=== PATIENT | male | born 1970 | race Caucasian/White ===

== ENCOUNTER 2021-04-07 12:23 | Inpatient (IN) | payer BC, SELFPAY ==
[2021-04-07] VITALS (16 sets, daily range): BP systolic 113–136; BP diastolic 72–92; PULSE 49–59; RESP 10–20; TEMP 36.9–37.3; O2SAT 95–100; BMI 20.4
[2021-04-07 12:56] LABS: Alanine Aminotransferase 33 IU/L (<50); Albumin 4.8 g/dL (3.5-5.0); Albumin Globulin Ratio 1.5 (1.0-2.8); Alkaline Phosphatase 69 U/L (38-126); Aspartate Aminotransferase 44 IU/L (17-59); Bilirubin Total 0.9 mg/dL (0.2-1.3); Blood Urea Nitrogen 18 mg/dL (9-20); Calcium 9.9 mg/dL (8.4-10.2); Carbon Dioxide 28 mmol/L (22-32); Chloride 101 mmol/L (98-107); Estimated Glomerular Filt Rate > 60.0 mL/min (>60); Globulin 3.3 g/dL (1.7-4.1); Glucose 123 mg/dL (70-100); HEMOLYSIS < 15 (0-50); Lipase 100 U/L (23-300); Potassium 4.1 mmol/L (3.4-5.1); Sodium 138 mmol/L (137-145); Total Protein 8.1 g/dL (6.3-8.2)
[2021-04-07 13:00] LABS: Add Manual Diff / Slide Review NO; Basophils Absolute Auto 0 /uL (0-100); Basophils Percent Auto 0.2 % (0-2); Eosinophils Absolute Auto 0 /uL (0-450); Hematocrit 44.2 % (41-53); Hemoglobin 14.7 g/dL (13.5-17.5); Lymphocytes Absolute Auto 1200 /uL (1100-4500); Lymphocytes Percent Auto 8.9 % (25-40); Mean Corpuscular HGB Conc 33.2 % (30-36); Mean Corpuscular Volume 93.6 fL (80-100); Monocytes Absolute Auto 800 /uL (0-900); Monocytes Percent Auto 5.5 % (3-14); Neutrophils Absolute Auto 11900 /uL (1500-7000); Neutrophils Percent Auto 85.4 % (50-75); Platelet Count 231 X10^3/uL (150-400); Red Blood Cell Count 4.73 X10^6/uL (4.5-5.9); Red Cell Distribution Width 13.1 % (11.6-14.8); White Blood Cell Count 13.9 X10^3/uL (4.5-11.0)
--- NOTE | 2021-04-07 13:02 | ED.ABDPAIN ---
HPI - Abdominal Pain General Chief Complaint: Abdominal Pain Stated Complaint: stomach pain Time Seen by Provider: 04/07/21 12:39 Source: patient Mode of arrival: Ambulatory Limitations: no limitations History of Present Illness HPI narrative: 50-year-old male nonsmoker presents with significant other and a chief complaint of severe lower abdominal pain that started last evening. He states that he has been having some abdominal discomfort off and on for the better part of a week but it became significantly worse last night. It is largely in his lower abdomen, perhaps left more than right. He has had nausea, vomiting. He has a poor appetite has not had anything since last night. He has had a hard time having bowel movements though he has tried. He denies any urinary complaints such as dysuria, frequency or urgency. His only abdominal surgery is of spleen secondary to trauma many years ago. Related Data Allergies Allergy/AdvReac Type Severity Reaction Status Date / Time No Known Drug Allergies Allergy Verified 04/07/21 12:28 Review of Systems Review of Systems Narrative: GENERAL: Denies chills, fatigue, malaise, fever, sweats. HEENT: Denies sinus pain, ear pain, sore throat, difficulty swallowing, dizziness. RESPIRATORY: Denies dyspnea, cough, wheezing, hemoptysis, sputum. CARDIOVASCULAR: Denies chest pain, palpitations, orthopnea, edema, GASTROINTESTINAL: see HPI : Denies dysuria, frequency, incontinence, hematuria, urinary retention. MUSCULOSKELETAL: denies weakness, joint pain, or bony pain SKIN: Denies rash, skin lesions, or other NEUROLOGIC: Denies weakness, headache, numbness, change in speech, confusion, seizures, incoordination. PSYCHIATRIC: No concerning psychosocial issues. 12 point review of systems is negative except for those stated above Patient History Surgical History (Updated 04/07/21 @ 18:37 by Zach Mitchell MD) Status post splenectomy Social History Smoking Status: Former smoker Smoking Status: Former smoker alcohol intake frequency: 0-2 drinks per day Substance Use Type: does not use Exam Narrative Exam Narrative: GENERAL: [50] year old patient appears stated age. Well-developed patient, in mild distress. HEAD: Atraumatic. Normocephalic. EYES: Pupils equal round and reactive. Extraocular motions intact. No scleral icterus. No injection or drainage. ENT: Nose without bleeding, purulent drainage. Throat without erythema, tonsillar hypertrophy or exudate. Airway patent. NECK: Trachea midline. Non tender CARDIOVASCULAR: Regular rate and rhythm without murmurs, gallops, or rubs. RESPIRATORY: Clear to auscultation. Breath sounds equal bilaterally. No wheezes, rales, or rhonchi. GASTROINTESTINAL: Abdomen soft, tender in the lower abdomen with decreased bowel sounds, no peritonitis or guarding EXTREMITIES: No edema or joint tenderness. BACK: Nontender without deformity or crepitance. No flank tenderness. NEURO: AOx3. SKIN: No rash or erythema of visible areas Initial Vital Signs Initial Vital Signs: Vital Signs Temperature 98.5 F 04/07/21 12:28 Pulse Rate 51 L 04/07/21 12:28 Respiratory Rate 14 04/07/21 12:28 Blood Pressure 123/82 04/07/21 12:28 Pulse Oximetry 100 04/07/21 12:28 Course Orders Ordered: ED Orders 04/07/21 12:33 EKG-12 Lead Stat 04/07/21 12:40 Complete Blood Count AUTO DIFF Stat Comprehensive Metabolic Panel Stat Lipase Stat 04/07/21 13:11 CT abdomen pelvis w con Stat Enoxaparin Sodium (Enoxaparin 40 Mg/0.4 Ml Syringe) 40 mg SUBCUT DAILY KADIE Lactated Ringer's (Lactated Ringers) 1,000 mls @ 1,000 mls/hr IV BOLUS ONE Stop: 04/07/21 19:12 Last Infusion: 04/07/21 18:32 Dose: 0 mls/hr Documented by: Admin: 04/07/21 18:31 Dose: 1,000 mls/hr Documented by: JIMI Lactated Ringer's (Lactated Ringers) 1,000 mls @ 150 mls/hr IV CONT KADIE Ketorolac Tromethamine (Ketorolac 30 Mg/Ml Vial) 30 mg IV Q6HR PRN PRN Reason: Pain, Moderate (4-6) Stop: 04/12/21 18:20 Naloxone HCl (Naloxone 0.4 Mg/Ml Vial) 0.2 mg IV Q2MIN PRN PRN Reason: Opiate Reversal Discontinued Medications Hydromorphone HCl (Hydromorphone 0.5 Mg Inj) 0.5 mg IV NOW ONE Stop: 04/07/21 13:28 Last Admin: 04/07/21 13:38 Dose: 0.5 mg Documented by: BTONER Hydromorphone HCl (Hydromorphone 0.5 Mg Inj) 0.5 mg IV NOW ONE Stop: 04/07/21 16:38 Last Admin: 04/07/21 16:47 Dose: 0.5 mg Documented by: BTONER Sodium Chloride (Normal Saline 0.9%) 1,000 mls @ 1,000 mls/hr IV BOLUS ONE Stop: 04/07/21 14:10 Last Infusion: 04/07/21 15:44 Dose: 0 mls/hr Documented by: Admin: 04/07/21 13:17 Dose: 1,000 mls/hr Documented by: BTONER Cefotetan Disodium 2 gm/ (Sodium Chloride) 100 mls @ 200 mls/hr IV NOW ONE Stop: 04/07/21 18:58 Lidocaine HCl (Lidocaine 2% (Glydo) 6 Ml Gel) 6 ml TOP NOW ONE Stop: 04/07/21 17:15 Last Admin: 04/07/21 17:18 Dose: 6 ml Documented by: CHARISMA Consultations Consultation #1: Discussion with on-call surgery, Dr. Mitchell, he will see the patient at the bedside and admit to his service Vital Signs Vital signs: Vital Signs - 8 hr 04/07/21 12:28 04/07/21 12:54 04/07/21 13:00 Temperature 98.5 F Pulse Rate 51 L 52 L 51 L Respiratory Rate 14 10 L Blood Pressure 123/82 113/72 116/74 Pulse Oximetry 100 99 98 04/07/21 13:30 04/07/21 14:30 04/07/21 15:00 Temperature Pulse Rate 51 L 56 L 50 L Respiratory Rate 12 13 16 Blood Pressure 119/75 Pulse Oximetry 99 95 95 04/07/21 15:30 04/07/21 15:50 04/07/21 16:00 Temperature Pulse Rate 52 L 50 L 53 L Respiratory Rate 16 13 14 Blood Pressure 129/84 123/84 Pulse Oximetry 95 98 96 04/07/21 16:30 04/07/21 17:00 04/07/21 17:05 Temperature 99.2 F Pulse Rate 49 L 50 L Respiratory Rate 20 Blood Pressure 117/79 122/76 Pulse Oximetry 96 98 MDM - Abdominal Pain Lab Data Result diagrams: 04/07/21 12:40 04/07/21 12:40 Labs: Lab Results 04/07/21 04/07/21 Range/Units 12:40 12:40 WBC 13.9 H (4.5-11.0) X10^3/uL RBC 4.73 (4.5-5.9) X10^6/uL Hgb 14.7 (13.5-17.5) g/dL Hct 44.2 (41-53) % MCV 93.6 (80-100) fL MCH 31.0 (26-34) PG MCHC 33.2 (30-36) % RDW 13.1 (11.6-14.8) % Plt Count 231 (150-400) X10^3/uL Neut % (Auto) 85.4 H (50-75) % Lymph % (Auto) 8.9 L (25-40) % [place] % (Auto) 5.5 (3-14) % Eos % (Auto) 0.0 L (2-4) % Baso % (Auto) 0.2 (0-2) % Neut # (Auto) 18832 H (6669-9735) /uL Lymph # (Auto) 1200 (2703-5818) /uL [place] # (Auto) 800 (0-900) /uL Eos # (Auto) 0 (0-450) /uL Baso # (Auto) 0 (0-100) /uL Sodium 138 (137-145) mmol/L Potassium 4.1 (3.4-5.1) mmol/L Chloride 101 (98-107) mmol/L Carbon Dioxide 28 (22-32) mmol/L BUN 18 (9-20) mg/dL Creatinine 0.75 (0.66-1.25) mg/dL Estimated GFR > 60.0 (>60) mL/min BUN/Creatinine Ratio 24.0 H (6-22) Glucose 123 H (70-100) mg/dL Calcium 9.9 (8.4-10.2) mg/dL Total Bilirubin 0.9 (0.2-1.3) mg/dL AST 44 (17-59) IU/L ALT 33 (<50) IU/L Alkaline Phosphatase 69 (38-126) U/L Total Protein 8.1 (6.3-8.2) g/dL Albumin 4.8 (3.5-5.0) g/dL Globulin 3.3 (1.7-4.1) g/dL Albumin/Globulin Ratio 1.5 (1.0-2.8) Lipase 100 (23-300) U/L Imaging Data CT scan - abdomen/pelvis: Radiologist's Impression: [address] [id number] Scan ReportSigned Patient: Brian DuarteMR#: [id number]: 1970Acct:[id number]/Sex: 50 / MDate of Service: 04/07/21Loc: EDAccession Number: [id number] Procedure: CT abdomen pelvis w con Ordering Provider: Chan Eagle D.O. PROCEDURE: CT ABDOMEN PELVIS W CON INDICATIONS: severe lower abdominal pain, N/V, fever, leukocytosis TECHNIQUE: After the administration of intravenous contrast, axial sections acquired from the lung bases to the pubic symphysis. Coronal and sagittal reformats were performed. For radiation dose reduction, the following was used: automated exposure control, adjustment of mA and/or kV according to patient size. COMPARISON: None. FINDINGS: Image quality: Excellent. Lung bases: Unremarkable. Heart: No significant findings. ABDOMEN: Liver: Liver demonstrates subtle nodular contour. Gallbladder: Unremarkable. Biliary ducts: Unremarkable. Pancreas: Unremarkable. Spleen: Spleen is small. The patient had history of partial splenectomy. There is a 1.5 cm splenule anterior to spleen. Adrenal Glands: Unremarkable. Kidneys and Ureters: Unremarkable. Stomach and Bowel: The proximal small bowel loops are dilated and filled with fluid measuring up to 3.5 cm in diameter. There is increased small bowel mucosal enhancement. Distal small bowel loops are decompressed with the transitional point in the right lower quadrant, likely in the distal ileum. The CT findings are consistent with small bowel obstruction. There is moderate amount of stool in colon. There is paucity of distal colonic gas. Appendix is retrocecal and demonstrates normal caliber and filled with air (series 2, image [id number]. Peritoneum: There is a small amount of free fluid around liver and in the deep peritoneal cavity. No free air. Ventral Wall: No hernias. Abdominal Nodes: No retroperitoneal or mesenteric adenopathy by size criteria. Vessels: Aorta and inferior vena cava are normal in size. PELVIS: Pelvic Organs: Unremarkable. Bladder: Unremarkable. Pelvic Nodes: No enlarged lymph nodes. Miscellaneous: No hernias are seen. Bones: Unremarkable. IMPRESSION: 1. Small bowel obstruction. 2. A small amount of free fluid is present. No free air. 3. Liver demonstrates subtle nodular contour. Please correlate with liver function tests. The result was discussed with Dr. Eagle. Dictated by: Kajal Brooke M.D. on 04/07/2021 at 14:24 Approved by: Kajal Brooke M.D. on 04/07/2021 at 14:37 Discharge Plan Departure Patient Disposition: Admitted As Inpatient Clinical Impression: Small bowel obstruction Admit Date/Time: 04/07/21 17:09 Admit Provider: Zach Mitchell
--- NOTE | 2021-04-07 13:11 | DI.CT.S_ITS ---
PROCEDURE: CT ABDOMEN PELVIS W CON INDICATIONS: severe lower abdominal pain, N/V, fever, leukocytosis TECHNIQUE: After the administration of intravenous contrast, axial sections acquired from the lung bases to the pubic symphysis. Coronal and sagittal reformats were performed. For radiation dose reduction, the following was used: automated exposure control, adjustment of mA and/or kV according to patient size. COMPARISON: None. FINDINGS: Image quality: Excellent. Lung bases: Unremarkable. Heart: No significant findings. ABDOMEN: Liver: Liver demonstrates subtle nodular contour. Gallbladder: Unremarkable. Biliary ducts: Unremarkable. Pancreas: Unremarkable. Spleen: Spleen is small. The patient had history of partial splenectomy. There is a 1.5 cm splenule anterior to spleen. Adrenal Glands: Unremarkable. Kidneys and Ureters: Unremarkable. Stomach and Bowel: The proximal small bowel loops are dilated and filled with fluid measuring up to 3.5 cm in diameter. There is increased small bowel mucosal enhancement. Distal small bowel loops are decompressed with the transitional point in the right lower quadrant, likely in the distal ileum. The CT findings are consistent with small bowel obstruction. There is moderate amount of stool in colon. There is paucity of distal colonic gas. Appendix is retrocecal and demonstrates normal caliber and filled with air (series 2, image [id number]. Peritoneum: There is a small amount of free fluid around liver and in the deep peritoneal cavity. No free air. Ventral Wall: No hernias. Abdominal Nodes: No retroperitoneal or mesenteric adenopathy by size criteria. Vessels: Aorta and inferior vena cava are normal in size. PELVIS: Pelvic Organs: Unremarkable. Bladder: Unremarkable. Pelvic Nodes: No enlarged lymph nodes. Miscellaneous: No hernias are seen. Bones: Unremarkable. IMPRESSION: 1. Small bowel obstruction. 2. A small amount of free fluid is present. No free air. 3. Liver demonstrates subtle nodular contour. Please correlate with liver function tests. The result was discussed with Dr. Eagle. Dictated by: Kajal Brooke M.D. on 04/07/2021 at 14:24 Approved by: Kajal Brooke M.D. on 04/07/2021 at 14:37
[2021-04-07] MEDS: SODIUM CHLORIDE 0.9% 1,000 ML 1000 ML IV (13:17)
[2021-04-07] MEDS: HYDROMORPHONE 0.5 MG INJ IV ×2 (13:38→16:47)
[2021-04-07] MEDS: ONDANSETRON 4 MG/2 ML INJ (13:38)
[2021-04-07] MEDS: LIDOCAINE 2% (GLYDO) 6 ML GEL TOP (17:18)
[2021-04-07] MEDS: LACTATED RINGERS 1,000 ML 1000 ML IV (18:31)
--- NOTE | 2021-04-07 18:34 | PM.HP.1 ---
History of Present Illness History of Present Illness Date Patient Seen: 04/07/21 Time Patient Seen: 17:30 Date of Onset of Symptoms: 04/07/21 Chief complaint: stomach pain Narrative: The patient is a gentleman who developed crampy abdominal pain early today. It progressed. He had diffuse abdominal pain that now mostly is localized in left lower quadrant and in the suprapubic area. He has never had symptoms like this before. It was accompanied by vomiting but no hematemesis. Only prior abdominal operation was a splenectomy for trauma. Last p.o. was sips of carbonated water prior to coming to the emergency room. Patient History Surgical History (Updated 04/07/21 @ 18:37 by Zach Mitchell MD) Status post splenectomy Family & Social History Safety & Behavioral: Feels Safe in Current Yes Environment Been Physically Hurt or No Threatened By a Person Tobacco & Substance use: Smoking Status Former smoker alcohol intake frequency 0-2 drinks per day Substance Use Type does not use Meds Home Medications and Allergies Allergies Allergy/AdvReac Type Severity Reaction Status Date / Time No Known Drug Allergies Allergy Verified 04/07/21 12:28 Review of Systems Review of Systems Narrative: Patient denies any double vision or pain is eyes. He does wear glasses. No earache sore throats or trouble swallowing. No tooth aches. No problems breathing asthma cough cold. Denies any heart problems chest pain or murmurs. No black or bloody bowel movements. He has had 3 colonoscopies due to the fact that he has a family history of uncles with colon cancer and a father who had some large polyps. Patient denies any hematuria or kidney stones. No depression or anxiety. No problems with his pancreas or thyroid he is aware of. No unusual bruising or bleeding. Exam Vital Signs (past 8 hours): - 04/07/21 12:28 04/07/21 12:54 04/07/21 13:00 Temperature 98.5 F Pulse Rate 51 L 52 L 51 L Respiratory Rate 14 10 L Blood Pressure 123/82 113/72 116/74 Pulse Oximetry 100 99 98 04/07/21 13:30 04/07/21 14:30 04/07/21 15:00 Temperature Pulse Rate 51 L 56 L 50 L Respiratory Rate 12 13 16 Blood Pressure 119/75 Pulse Oximetry 99 95 95 04/07/21 15:30 04/07/21 15:50 04/07/21 16:00 Temperature Pulse Rate 52 L 50 L 53 L Respiratory Rate 16 13 14 Blood Pressure 129/84 123/84 Pulse Oximetry 95 98 96 04/07/21 16:30 04/07/21 17:00 04/07/21 17:05 Temperature 99.2 F Pulse Rate 49 L 50 L Respiratory Rate 20 Blood Pressure 117/79 122/76 Pulse Oximetry 96 98 04/07/21 17:30 Temperature Pulse Rate 59 L Respiratory Rate Blood Pressure 114/79 Pulse Oximetry 95 Oxygen Delivery Method Room Air Narrative Exam Narrative: Cooperative thin gentleman in no apparent distress. Eyes are nonicteric. Pupils are equal round reactive to light. Conjunctiva are pink. Nasal septum is midline. Oral mucosa is pink moist no open lesions. Teeth are intact. There are no nodes in the neck or supraclavicular areas. No bruit in the neck. Lungs are clear to auscultation equal to percussion. Good respiratory effort. Heart regular rate and rhythm without murmur gallop. No heave lift or thrill. Abdomen is normoactive bowel sounds. They reduced however number. No ventral hernias or inguinal hernias appreciated. Abdomen is distended but soft. No guarding. Not tender at this time. He has been given pain medication however. Objective Imaging CT scan - abdomen: My impression: Patient has a bowel obstruction with distal collapse of his small bowel. Stomach is distended with fluid. Patient appears to have a fairly large accessory spleen that has developed. ( He is certain he was told he had a complete splenectomy at the time of his spleen injury.) Labs Result Diagrams: 04/07/21 12:40 04/07/21 12:40 Labs: Laboratory Results - last 24 hr 04/07/21 04/07/21 12:40 12:40 WBC 13.9 H RBC 4.73 Hgb 14.7 Hct 44.2 MCV 93.6 MCH 31.0 MCHC 33.2 RDW 13.1 Plt Count 231 Neut % (Auto) 85.4 H Lymph % (Auto) 8.9 L [place] % (Auto) 5.5 Eos % (Auto) 0.0 L Baso % (Auto) 0.2 Neut # (Auto) 17754 H Lymph # (Auto) 1200 [place] # (Auto) 800 Eos # (Auto) 0 Baso # (Auto) 0 Sodium 138 Potassium 4.1 Chloride 101 Carbon Dioxide 28 BUN 18 Creatinine 0.75 Estimated GFR > 60.0 BUN/Creatinine Ratio 24.0 H Glucose 123 H Calcium 9.9 Total Bilirubin 0.9 AST 44 ALT 33 Alkaline Phosphatase 69 Total Protein 8.1 Albumin 4.8 Globulin 3.3 Albumin/Globulin Ratio 1.5 Lipase 100 Assessment & Plan Assessment and plan (1) Small bowel obstruction: Status: Acute Assessment & Plan narrative: Most likely cause of his obstruction is adhesions pharmacies prior splenectomy. I placed an NG tube and will place dissection. Will begin a small-bowel follow-through with water-soluble contrast. DVT prophylaxis ordered. Nonnarcotic pain medication ordered. Discussed the plan with the patient. If the small-bowel follow-through does not successfully resolve his problem will require operative intervention.
--- NOTE | 2021-04-07 18:37 | PC.NURSE ---
Dr. Mitchell provided lido jet and inserted 18fr NGT at bedside suction immediately with 150 light green clear liquid. pt then placed on low intermittent suction.
--- NOTE | 2021-04-07 18:57 | DI.RAD.S_ITS ---
PROCEDURE: [place] SMALL BOWEL FOLLOW THROUGH INDICATIONS: ilus vs obstruction COMPARISON: [facility], CT, CT ABDOMEN PELVIS W CON, 04/07/2021, 14:03. FINDINGS: . Small bowel: There is delayed transit of barium contrast through small bowel.. Small bowel loops dilated up to 3.6 centimeters.. Mucosal folds are smooth and of normal thickness. No strictures, intraluminal masses, or extrinsic mass effects are identified in the opacified loops of bowel. The terminal ileum is not opacified. IMPRESSION: Delayed transit of barium contrast through mildly dilated loops of small bowel concerning for small bowel obstruction. Dictated by: Helen Peterson MD, PhD on 04/08/2021 at 10:25 Approved by: Helen Peterson MD, PhD on 04/08/2021 at 10:28
[2021-04-07 19:42] LABS: COVID19 - ADMIT (NP swab/PCR) Negative (Negative)
[2021-04-07] MEDS: CEFOTETAN 2 GM in SODIUM CHLORIDE 0.9% 100 ML 200 ML IV (19:48)
[2021-04-07] MEDS: LACTATED RINGERS 1,000 ML 150 ML IV ×2 (19:49→21:35)
[2021-04-07] MEDS: KETOROLAC 30 MG/ML VIAL IV (21:13)
--- NOTE | 2021-04-07 21:19 | PC.NURSE ---
Small bowel follow through initiated. Suction turned off on NG tube and gastrografin given. X-ray called and they will be coming up in 2 hours.
[2021-04-08] VITALS (21 sets, daily range): BP systolic 106–120; BP diastolic 60–77; PULSE 49–73; RESP 14–18; TEMP 36.7–37.7; O2SAT 88–100; BMI 20.4
[2021-04-08] MEDS: ONDANSETRON 4 MG/2 ML INJ IV (02:07)
[2021-04-08] MEDS: KETOROLAC 30 MG/ML VIAL IV ×2 (03:41→21:59)
[2021-04-08] MEDS: BENZOCAINE/MENTHOL 1 LOZ PKT 1 EACH PO (03:41)
[2021-04-08] MEDS: LACTATED RINGERS 1,000 ML 150 ML IV ×4 (04:41→23:39)
[2021-04-08 05:00] LABS: Add Manual Diff / Slide Review NO; Basophils Absolute Auto 0 /uL (0-100); Basophils Percent Auto 0.2 % (0-2); Eosinophils Absolute Auto 0 /uL (0-450); Eosinophils Percent Auto 0.1 % (2-4); Hematocrit 44.6 % (41-53); Lymphocytes Absolute Auto 700 /uL (1100-4500); Lymphocytes Percent Auto 6.1 % (25-40); Mean Corpuscular HGB Conc 33.6 % (30-36); Mean Corpuscular Hemoglobin 31.3 PG (26-34); Mean Corpuscular Volume 93.1 fL (80-100); Monocytes Absolute Auto 1200 /uL (0-900); Monocytes Percent Auto 9.9 % (3-14); Neutrophils Absolute Auto 9800 /uL (1500-7000); Neutrophils Percent Auto 83.7 % (50-75); Platelet Count 220 X10^3/uL (150-400); Red Blood Cell Count 4.79 X10^6/uL (4.5-5.9); Red Cell Distribution Width 13.2 % (11.6-14.8); White Blood Cell Count 11.7 X10^3/uL (4.5-11.0)
[2021-04-08 05:04] LABS: Alanine Aminotransferase 26 IU/L (<50); Albumin 4.3 g/dL (3.5-5.0); Albumin Globulin Ratio 1.4 (1.0-2.8); Alkaline Phosphatase 55 U/L (38-126); Aspartate Aminotransferase 36 IU/L (17-59); BUN Creatinine Ratio 24.4 (6-22); Bilirubin Total 0.9 mg/dL (0.2-1.3); Blood Urea Nitrogen 21 mg/dL (9-20); Calcium 9.9 mg/dL (8.4-10.2); Carbon Dioxide 29 mmol/L (22-32); Chloride 103 mmol/L (98-107); Estimated Glomerular Filt Rate > 60.0 mL/min (>60); Glucose 122 mg/dL (70-100); HEMOLYSIS < 15 (0-50); Magnesium 2.2 mg/dL (1.6-2.3); Sodium 138 mmol/L (137-145); Total Protein 7.3 g/dL (6.3-8.2)
--- NOTE | 2021-04-08 07:45 | PC.NURSE ---
Addendum entered by Cyndie Yates R.N. 04/08/21 16:57: Patient desats on RA while asleep, placed on 2L sats 95%, patient reports IVP dialudid effective for abdominal pain. Addendum entered by Cyndie Yates R.N. 04/08/21 16:04: Patient back from the OR, alert, oriented rates abd pain 6/10 given 1mg IVP dilaudid. NG hooked back to JULIEN mcgill, zahra patent. Addendum entered by Cyndie Yates R.N. 04/08/21 11:49: Patient off to the OR. Original Note: Dr Mitchell informed of patients uop of 100cc for NOC shift, order for 1L LR bolus taken. hooked patient back up to wall suction.
[2021-04-08] MEDS: LACTATED RINGERS 1,000 ML 1000 ML IV (08:03)
--- NOTE | 2021-04-08 11:26 | PM.PREOP ---
Pre-operative Note COVID-19 COVID-19 status: Negative Result date/Date tested (Pos, Neg/Pending): 04/07/21 Interval Note History & Physical reviewed/Exam performed by Physician: Yes Changes to H&P: Yes H&P completed within 30 days and has changed as indicated here:: I.e. have completed his small-bowel follow-through overnight. After Casas hours there is no contrast in the colon. This is consistent with complete bowel obstruction. He has been placed back on suction. Lungs are clear. Abdomen is distended but soft. No tenderness. White blood cell count remains slightly elevated with a preponderance segs. I have discussed the operation and rationale with him. I really do not intend to do any laparoscopic portion of this due to the amount of distension and the fact of his prior operation. I discussed the possibility of needing to resect a portion of intestine. Risks of bleeding, infection, future bowel obstruction, hernia and anastomotic leak if I need to resect bowel were all discussed with him. I also talked to him about limiting poorly digestible vegetables in the future from his diet. Explained that he will need about 6 weeks of limited activity postop to recover. All questions were answered.
[2021-04-08] MEDS: LACTATED RINGERS 1,000 ML 42 ML IV (12:02)
[2021-04-08] MEDS: FAMOTIDINE 20 MG/2 ML VIAL 40 MG IV (12:22)
[2021-04-08] MEDS: CEFOTETAN 2 GM in SODIUM CHLORIDE 0.9% 100 ML 200 ML IV (12:43)
--- NOTE | 2021-04-08 12:58 | SUR.OPER ---
Supine on padded OR bed, head on pillow, arms secured on padded arm boards at <90 degrees abduction, legs uncrossed, safety belt at thigh, tape over blanket over lower legs.
[2021-04-08] MEDS: BUPIVACAINE 0.25% W/ EPI 30 ML VIAL INJ (13:57)
--- NOTE | 2021-04-08 14:01 | CM.DANOTE ---
Patient is 50 year old male who was admitted on 04/07/21 for stomach pain. Pt has [employer] OUT [place] [employer] for insurance and his PCP [place] out of state. EMR was reviewed. Per Surgeon, pt has NG tube and SBFT. Per contrast, SBO and will need surgical intervention and scheduled for this afternoon. SW met bedside with pt and Sig Other Hortensia and explained role and pt confirms that he lives at home with spouse in [place] and is just in [place] visiting on vacation. Pt is active and independent at baseline and works and does not use DME and drives himself. Pt had plans for spouse to fly home and he would drive back to the [facility] and transport his Dtr but now realizing that he may not be feeling well enough after surgery to drive that distance. D/C needs unclear at this time, awaiting surgical intervention to determine needs. Plan: SW to follow closely after surgery later today towards determining if pt progresses enough for safe d/c home with Sig Other back to [place] and any further identified needs. JOSE Peres Discharge Planning/Care Management CM Discharge Assessment Start: 04/08/21 13:44 Freq: Status: Active Protocol: Document 04/08/21 13:46 BF (Rec: 04/08/21 14:01 BF [id number]) Discharge Planning Assessment Assigned Rivet Heater JOSE Garcia DPOA/Assigned Designee Name sig other Contact Information [phone] Advance Directives? No Advance Directives on File No History Provided By Patient,Significant Other, Medical Record Has Patient been admitted in last 30 No days? Prior Living Arrangements House Household Members spouse,children Type of transporation used prior to Drives own vehicle admit Is patient alert and oriented? Yes Caregiver for Another No Barriers to Discharge No Comment Although pt resides in [place] and was planning to drive back home to [facility] but has family present. Discharge Plan Home Transportation Arrangement Sig Other bedside Additional Comment Pending surgery and needs Whiteboard Updated in Patient Room with Yes name and ext. # of Rivet Heater Review Status In Process Please Provide Date Initial DC 04/08/21 Assessment Was Performed Next Review Type Continued Stay Review
--- NOTE | 2021-04-08 14:48 | PM.OP.1 ---
Operative Date/Time/Diagnoses Date of procedure: 04/08/21 Time of procedure: 14:48 Pre-op diagnosis: Small bowel obstruction Post-op diagnosis: same ( adhesive small bowel obstruction) Procedure & Clinicians Procedure: exploration it he has a lysis and resection of a portion of small bowel Same procedure as scheduled: Yes Indications: patient with signs and symptoms and x-rays consistent with a small-bowel obstruction. Gastrografin failed to progress through his intestine and he was taken to the operating room with a diagnosis of complete obstruction. Surgeon: Zach Mitchell Click Yes if Unassisted: Yes Anesthesia Type: General Operative Notes Findings: single loop adherent to the anterior abdominal wall which had twisted resulting in obstruction. The adhesion to the anterior abdominal wall was very dense an in resecting portion of the abdominal wall off to free the intestine it appeared that there was some stricturing in the area and therefore I decided to remove this segment which was probably an inch and half in length. Closure Type: primary Specimen(s): other ( Small piece of bowel) Prosthetic devices, grafts, tissues, transplants, or devices: known Estimated Blood Loss (mL): 20 Blood products transfused: none Procedure in detail: patient was placed supine on the operating room table and underwent general endotracheal anesthesia. A Sullivan was placed and he was prepped and draped in the usual fashion. An incision was made from just above his umbilicus to the lower abdomen and carried directly under vision into the peritoneal cavity. I opened the fascia superiorly and inferiorly and quickly identified dilated small bowel. Just to the right of my incision was a loop of small bowel that appeared to be twisted and densely adherent to the anterior abdominal wall. I very tedious the took this off having to leave a portion of the wall on the intestine to prevent injury. This was clearly the source of obstruction as proximal to this the bowel was dilated and distal was collapsed. In examining the bowel appeared to be a stricture at this area. I resected the anti mesenteric portion of bowel which had the adhesion. I closed it in a [id number] fashion In 2 layers. The inner layer was a running 3-0 Vicryl and the outer layer with interrupted seromuscular 3-0silks. the intestine appeared to be widely patent. I could feel a ring consistent with a patent opening. I tested for leakage and there was none. Fluid and air passed across the area. Since I did not go all the way through the back wall of the small bowel there was no mesenteric defect created. I ran the small bowel from the ileocecal valve proximally to the ligament Treitz. I carefully milk some of the contents of the small bowel back into the stomach where was suctioned out. This allowed me to have a little bit of freedom to close the abdominal wall. Intestine was returned very carefully to the abdomen and the pelvis irrigated and suctioned free of fluid. The fascia was closed with a running 1. PDS an occasional [id number] 0 Vicryl sutures. The subQ was reapproximated with interrupted 3-0 Vicryl after irrigating the subcu. Local anesthetic was infiltrated and the skin was closed a running 4-0 Vicryl subcuticular stitch and Steri-Strips. Dressing was applied and the patient was awakened extubated and taken the recovery room good condition. There were no apparent complications. NG and Sullivan were left in place. Complications: none Post-operative Condition: stable Disposition: PACU
[2021-04-08] MEDS: HYDROMORPHONE 1 MG INJ IV ×2 (15:57→18:46)
[2021-04-09] VITALS (9 sets, daily range): BP systolic 99–112; BP diastolic 59–63; PULSE 52–68; RESP 16–20; TEMP 36.5–37.7; O2SAT 93–97
[2021-04-09] MEDS: BENZOCAINE/MENTHOL 1 LOZ PKT 1 EACH PO ×2 (01:20→08:39)
[2021-04-09] MEDS: HYDROMORPHONE 1 MG INJ IV ×5 (01:20→20:13)
[2021-04-09 05:30] LABS: Add Manual Diff / Slide Review NO; Basophils Absolute Auto 0 /uL (0-100); Basophils Percent Auto 0.4 % (0-2); Eosinophils Absolute Auto 0 /uL (0-450); Eosinophils Percent Auto 0.3 % (2-4); Hematocrit 40.2 % (41-53); Hemoglobin 13.3 g/dL (13.5-17.5); Lymphocytes Absolute Auto 1800 /uL (1100-4500); Mean Corpuscular HGB Conc 33.2 % (30-36); Mean Corpuscular Hemoglobin 31.3 PG (26-34); Mean Corpuscular Volume 94.2 fL (80-100); Monocytes Absolute Auto 1200 /uL (0-900); Monocytes Percent Auto 14.9 % (3-14); Neutrophils Absolute Auto 5200 /uL (1500-7000); Neutrophils Percent Auto 62.4 % (50-75); Platelet Count 181 X10^3/uL (150-400); Red Blood Cell Count 4.26 X10^6/uL (4.5-5.9); White Blood Cell Count 8.3 X10^3/uL (4.5-11.0)
[2021-04-09 05:38] LABS: BUN Creatinine Ratio 25.2 (6-22); Blood Urea Nitrogen 27 mg/dL (9-20); Calcium 8.6 mg/dL (8.4-10.2); Carbon Dioxide 30 mmol/L (22-32); Chloride 101 mmol/L (98-107); Estimated Glomerular Filt Rate > 60.0 mL/min (>60); Glucose 113 mg/dL (70-100); HEMOLYSIS < 15 (0-50); Potassium 4.4 mmol/L (3.4-5.1); Sodium 137 mmol/L (137-145)
[2021-04-09] MEDS: LACTATED RINGERS 1,000 ML 150 ML IV ×3 (06:05→19:48)
[2021-04-09] MEDS: KETOROLAC 30 MG/ML VIAL IV ×3 (06:05→18:30)
--- NOTE | 2021-04-09 08:14 | PC.NURSE ---
Day shift: Pt encouraged to use I.S. and to perform foot waves. Reports pain of 3/10. NG tube patent and to suction per MD w/ green bile output. Pt NPO. Sullivan patent with jacob urine output. WIll continue w/ plan of care.
[2021-04-09] MEDS: FAMOTIDINE 20 MG/2 ML VIAL IV ×2 (08:41→20:13)
[2021-04-09] MEDS: ENOXAPARIN 40 MG/0.4 ML SYRINGE SUBCUT (08:41)
--- NOTE | 2021-04-09 12:22 | PM.PNPO.1 ---
Subjective Subjective Interval history: Patient feeling okay. Just had pain medication. Having pain as 1 might expect. Exam Vital Signs (past 8 hours): - 04/09/21 06:30 04/09/21 08:10 Temperature 99.1 F Pulse Rate 64 Respiratory Rate 16 Blood Pressure 102/61 Pulse Oximetry 93 97 Oxygen Delivery Method Room Air Oxygen Flow Rate 0 Narrative Exam Narrative: Cooperative gentleman. No distress. His lungs are clear. Excellent effort. Heart regular rate and rhythm without murmur gallop. Abdomen is flat and soft. He has hyperactive bowel sounds that are normal pitched. Objective Labs Result Diagrams: 04/09/21 05:13 04/09/21 05:13 Labs: Laboratory Results - last 24 hr 04/09/21 04/09/21 05:13 05:13 WBC 8.3 RBC 4.26 L Hgb 13.3 L Hct 40.2 L MCV 94.2 MCH 31.3 MCHC 33.2 RDW 13.0 Plt Count 181 Neut % (Auto) 62.4 D Lymph % (Auto) 22.0 L [place] % (Auto) 14.9 H Eos % (Auto) 0.3 L Baso % (Auto) 0.4 Neut # (Auto) 5200 Lymph # (Auto) 1800 [place] # (Auto) 1200 H Eos # (Auto) 0 Baso # (Auto) 0 Sodium 137 Potassium 4.4 Chloride 101 Carbon Dioxide 30 BUN 27 H Creatinine 1.07 Estimated GFR > 60.0 BUN/Creatinine Ratio 25.2 H Glucose 113 H Calcium 8.6 PFSH Surgical History (Updated 04/07/21 @ 18:37 by Zach Mitchell MD) Status post splenectomy Social History household members: spouse and children Smoking Status: Former smoker alcohol intake: current Assessment & Plan Post-op Assessment and plan (1) Small bowel obstruction: Postoperative Procedures: Procedures Operation Date: 04/08/21 14:15 Actual Procedure Side Surgeon p exploratory laparotomy, small bowel resection, lysis of adhesions Not Applicable Zach Mitchell MD Postoperative plan narrative: Continue NPO with NG tube. Control pain. Ambulate. Continue to work on incentive spirometer though frankly he is doing have excellent job. Await return of bowel function. Increased fluid volume yesterday. Quality VTE Deep Vein Thrombosis/Pulmonary Embolism Present on Admission: No
--- NOTE | 2021-04-09 14:46 | CM.DPNOTE ---
DCP: continued: case received and discussed in Team Rounds. EMR reviewed. Pt is today post op day one from [facility] and small bowel resection on 04/08. NGT is in place and pt currently NPO. Awaiting bowel function. DCP team will be following to assist prn with any d/c needs that may be needed.
--- NOTE | 2021-04-09 22:40 | PC.NURSE ---
A&Ox4. VSS. Pain in abdomen 4-5/10 throughout shift and increased to 6/10 with ambulation in the hallway. PRN IV dilaudid and toradol given which both provide relief. NPO, given mouth swabs and lip moisture. NG tube to suction, 900mL emptied at 1999. Incision dressing cdi. Bowel tones active in the RUQ and LUQ, hypoactive LLQ, RLQ. LR @ 150 into R AC PIV. SCDs on, removed for activity. Call light within reach, bed low.
[2021-04-10] VITALS (20 sets, daily range): BP systolic 99–117; BP diastolic 58–76; PULSE 60–80; RESP 16–20; TEMP 36.9–39.3; O2SAT 94–97
[2021-04-10] MEDS: HYDROMORPHONE 1 MG INJ IV ×5 (00:27→17:51)
[2021-04-10] MEDS: KETOROLAC 30 MG/ML VIAL IV ×3 (00:31→21:36)
[2021-04-10] MEDS: BENZOCAINE/MENTHOL 1 LOZ PKT 1 EACH PO ×5 (00:40→20:29)
[2021-04-10] MEDS: LACTATED RINGERS 1,000 ML 150 ML IV ×2 (02:47→09:27)
[2021-04-10] MEDS: FAMOTIDINE 20 MG/2 ML VIAL IV ×2 (07:52→20:29)
--- NOTE | 2021-04-10 12:01 | DI.RAD.S_ITS ---
PROCEDURE: XR ACUTE ABDOMEN SERIES INDICATIONS: post op fever after sbo TECHNIQUE: One view chest and two views of the abdomen were acquired. COMPARISON: [facility], CT, CT ABDOMEN PELVIS W CON, 04/07/2021, 14:03. FINDINGS: Surgical changes and devices: Esophagogastric tube extends into and coils within the gastric cardia. No subdiaphragmatic free air. Chest: Lungs are clear. Heart size is normal. No pleural effusions. No pneumoperitoneum. Abdomen: Colonic bowel gas pattern is normal. Small bowel gas prominence persists along the left upper quadrant and left lateral abdomen. The CT scanning performed 04/07/21 had shown small bowel gas and fluid dilatation and the colon has appeared relatively collapsed. This pattern persists. No suspicious calcifications. Visualized solid organ contours appear normal. Bones: No suspicious bony lesions. IMPRESSION: Persistent small bowel gas prominence on the left, extending from the left upper quadrant into the pelvis, and the colon appears decompressed. Esophagogastric tube tip is present within the gastric cardia. Please note that plain film imaging can underestimate the degree of dilatation of the small bowel if it is predominantly fluid-filled. This was the case on prior CT scanning. Dictated by: Omid So M.D. on 04/10/2021 at 13:38 Approved by: Omid So M.D. on 04/10/2021 at 13:44
[2021-04-10] MEDS: cefTRIAXone 1,000 MG in SODIUM CHLORIDE 0.9% 100 ML 200 ML IV (14:20)
[2021-04-10] MEDS: BISACODYL 10 MG SUPP PR (14:20)
[2021-04-10] MEDS: metroNIDAZOLE 500 MG/100 ML PIGGYBACK 100 MG IV ×2 (15:38→22:53)
[2021-04-10 15:39] LABS: Procalcitonin 1.64 ng/mL (<0.5)
[2021-04-10 16:40] LABS: Add Manual Diff / Slide Review NO; Basophils Absolute Auto 100 /uL (0-100); Basophils Percent Auto 1.5 % (0-2); Eosinophils Absolute Auto 0 /uL (0-450); Eosinophils Percent Auto 0.2 % (2-4); Hematocrit 38.1 % (41-53); Hemoglobin 12.9 g/dL (13.5-17.5); Lymphocytes Absolute Auto 600 /uL (1100-4500); Lymphocytes Percent Auto 13.6 % (25-40); Mean Corpuscular HGB Conc 33.8 % (30-36); Mean Corpuscular Hemoglobin 31.5 PG (26-34); Mean Corpuscular Volume 93.3 fL (80-100); Monocytes Absolute Auto 800 /uL (0-900); Monocytes Percent Auto 16.8 % (3-14); Neutrophils Absolute Auto 3100 /uL (1500-7000); Neutrophils Percent Auto 67.9 % (50-75); Platelet Count 176 X10^3/uL (150-400); Red Blood Cell Count 4.08 X10^6/uL (4.5-5.9); Red Cell Distribution Width 12.8 % (11.6-14.8); White Blood Cell Count 4.6 X10^3/uL (4.5-11.0)
[2021-04-10] MEDS: DEXTROSE 5%-LACTATED RINGERS 1,000 ML 125 ML IV (17:32)
[2021-04-10] MEDS: ACETAMINOPHEN 650 MG SUPP PR ×2 (18:37→23:42)
--- NOTE | 2021-04-10 19:36 | P.PN_ITS ---
Subjective Subjective Interval history: Patient was feeling pretty well this morning. However he has had attempt a size 102. His in he states that he does this spontaneously sometime since his splenectomy. Even so is hard for me to dismiss that us as a post splenectomy phenomenon. No flatus or bowel movement. He does not have any increased abdominal pain. His nose is sore for it with the NG tube in. No cough or cold. Breathing okay. Exam Vital Signs (past 8 hours): - 04/10/21 11:55 04/10/21 15:30 04/10/21 16:17 Temperature 102.7 F H 101.4 F H Pulse Rate 78 Respiratory Rate 20 Blood Pressure 114/67 Pulse Oximetry 97 95 04/10/21 18:37 04/10/21 19:26 Temperature 101.4 F H 102.7 F H Pulse Rate 80 Respiratory Rate 18 Blood Pressure 112/75 Pulse Oximetry 96 Oxygen Delivery Method Room Air Oxygen Flow Rate 0 Narrative Exam Narrative: Lungs are clear to auscultation no rales or rhonchi. Excellent effort. Heart regular rate and rhythm. Abdomen remains distended but it is soft and not unusually tender. I removed distressing. The wound looks fine. Sullivan was out yesterday. Objective Labs Result Diagrams: 04/10/21 16:35 04/09/21 05:13 Labs: Laboratory Results - last 24 hr 04/10/21 04/10/21 14:58 16:35 WBC 4.6 RBC 4.08 L Hgb 12.9 L Hct 38.1 L MCV 93.3 MCH 31.5 MCHC 33.8 RDW 12.8 Plt Count 176 Neut % (Auto) 67.9 Lymph % (Auto) 13.6 L [place] % (Auto) 16.8 H Eos % (Auto) 0.2 L Baso % (Auto) 1.5 Neut # (Auto) 3100 Lymph # (Auto) 600 L [place] # (Auto) 800 Eos # (Auto) 0 Baso # (Auto) 100 Procalcitonin 1.64 H PFSH Surgical History Status post splenectomy Social History household members: spouse and children Smoking Status: Former smoker alcohol intake: current Assessment & Plan Post-op Postoperative Procedures: Procedures Operation Date: 04/08/21 14:15 Actual Procedure Side Surgeon p exploratory laparotomy, small bowel resection, lysis of adhesions Not Applicable Zach Mitchell MD Postoperative day: 2 Postoperative status narrative: Unclear where this temperature is from. It could be related to his NG tube in his nose. It could be intra-abdominal. He does have an elevated procalcitonin. It is possible it is an early problem with the wound that is not yet apparent. It is possible it is a a dehiscence of his anastomosis. Postoperative plan narrative: Reviewed his x-rays that I ordered today. Nothing unusual about them. I am only 2 days out from his operations are not surprised that he still has a lot of distention in his small bowel. There does appear to be some contrast or material in his right colon however. His white blood cell count interestingly is normal with a fairly normal diff. he has an elevation of monos. I started him back on broad-spectrum antibiotics to cover intestinal honorio. This should also well cover any nasal issues. It would also cover any possible wound issues. I am waiting a urine culture. Repeat labs in the morning. Repeat x-rays if none of this improves his condition. Quality VTE Deep Vein Thrombosis/Pulmonary Embolism Present on Admission: No
--- NOTE | 2021-04-10 19:37 | PC.NURSE ---
Assumed care of pt at 1500. Pt sitting up in Bed. NGT to LIS, green output. Up to bathroom passed small amt of yellow liquid from rectum. Reports small amt of flatus with liquid passage. Elevated temp 102.7 Upon reassessment 101.4. ABX infusing per orders. MD aware. Tylenol supp given. Ambulating in halls. Showered. Calling appropriately for needs.
[2021-04-10] MEDS: LORazepam 2 MG/ML INJ 1 MG IV (21:36)
[2021-04-11] VITALS (26 sets, daily range): BP systolic 82–111; BP diastolic 47–69; PULSE 59–78; RESP 16–36; TEMP 36.6–39.7; O2SAT 85–98
[2021-04-11] MEDS: DEXTROSE 5%-LACTATED RINGERS 1,000 ML 125 ML IV ×2 (02:32→08:22)
[2021-04-11] MEDS: KETOROLAC 30 MG/ML VIAL IV ×2 (02:32→18:02)
[2021-04-11] MEDS: metroNIDAZOLE 500 MG/100 ML PIGGYBACK 100 MG IV (05:00)
[2021-04-11] MEDS: HYDROMORPHONE 1 MG INJ IV ×3 (05:45→21:07)
[2021-04-11] MEDS: ACETAMINOPHEN 650 MG SUPP PR (05:46)
--- NOTE | 2021-04-11 06:02 | PC.NURSE ---
Dr. Mitchell called reported pt. spiking temp. up to 103.5. Order received to give 1 Gram of Vancomycin IVPB after Flagyl done infusing. Will implement order & monitor.
[2021-04-11] MEDS: VANCOMYCIN 1,000 MG/200 ML PIGGYBACK 200 MG IV ×2 (06:34→17:59)
[2021-04-11 07:06] LABS: INR 1.3 (0.9-1.3)
[2021-04-11 07:09] LABS: PTT Partial Thromboplastin Tim 32 SECONDS (26.4-36.2)
[2021-04-11 07:10] LABS: Add Manual Diff / Slide Review NO; Basophils Absolute Auto 0 /uL (0-100); Basophils Percent Auto 0.3 % (0-2); Eosinophils Absolute Auto 0 /uL (0-450); Eosinophils Percent Auto 0.2 % (2-4); Hematocrit 36.3 % (41-53); Hemoglobin 12.4 g/dL (13.5-17.5); Lymphocytes Absolute Auto 700 /uL (1100-4500); Lymphocytes Percent Auto 16.5 % (25-40); Mean Corpuscular HGB Conc 34.1 % (30-36); Mean Corpuscular Hemoglobin 31.8 PG (26-34); Mean Corpuscular Volume 93.2 fL (80-100); Monocytes Absolute Auto 900 /uL (0-900); Monocytes Percent Auto 20.6 % (3-14); Neutrophils Absolute Auto 2700 /uL (1500-7000); Neutrophils Percent Auto 62.4 % (50-75); Platelet Count 162 X10^3/uL (150-400); Red Blood Cell Count 3.89 X10^6/uL (4.5-5.9); Red Cell Distribution Width 12.4 % (11.6-14.8); White Blood Cell Count 4.3 X10^3/uL (4.5-11.0)
[2021-04-11 07:14] LABS: Lactate (Lactic Acid) 1.1 mmol/L (0.7-2.1)
[2021-04-11 07:15] LABS: Alanine Aminotransferase 14 IU/L (<50); Albumin 3.1 g/dL (3.5-5.0); Albumin Globulin Ratio 1.1 (1.0-2.8); Alkaline Phosphatase 38 U/L (38-126); Aspartate Aminotransferase 33 IU/L (17-59); BUN Creatinine Ratio 25.9 (6-22); Bilirubin Total 0.5 mg/dL (0.2-1.3); Blood Urea Nitrogen 29 mg/dL (9-20); Calcium 8.4 mg/dL (8.4-10.2); Carbon Dioxide 26 mmol/L (22-32); Chloride 104 mmol/L (98-107); Estimated Glomerular Filt Rate > 60.0 mL/min (>60); Globulin 2.9 g/dL (1.7-4.1); Glucose 131 mg/dL (70-100); HEMOLYSIS < 15 (0-50); Magnesium 1.9 mg/dL (1.6-2.3); Potassium 3.7 mmol/L (3.4-5.1); Sodium 136 mmol/L (137-145)
--- NOTE | 2021-04-11 07:23 | DI.CT.S_ITS ---
PROCEDURE: CT ABDOMEN PELVIS W CON INDICATIONS: fever r/o intra abd cause e.g. intestinal ischemia/leak TECHNIQUE: After the administration of intravenous contrast, axial sections acquired from the lung bases to the pubic symphysis. Coronal and sagittal reformats were performed. For radiation dose reduction, the following was used: automated exposure control, adjustment of mA and/or kV according to patient size. COMPARIS, new since the prior examination. New trace right pleural effusion. ON: [facility], CR, XR ACUTE ABDOMEN SERIES, 04/10/2021, 13:18. Effusion [facility], CR, XR ACUTE ABDOMEN SERIES, 04/10/2021, 13:18[facility], CT, CT ABDOMEN PELVIS W CON, 04/07/2021, 14:03. FINDINGS: Image quality: Excellent. Lung bases: Small left pleural Heart: No significant findings. ABDOMEN: Liver: Unremarkable. Gallbladder: Is contracted, and demonstrates a high density focus within its lumen Biliary ducts: Unremarkable. Pancreas: Unremarkable. Spleen: Unremarkable. Adrenal Glands: Unremarkable. Kidneys and Ureters: Unremarkable. Stomach and Bowel: Stomach is nondistended and demonstrates an NGT within its lumen. Duodenum is nondistended. There are multiple moderately distended and mildly thickened loops of mid and proximal small bowel. There are a few nondistended loops of distal small bowel. Transition zone between dilated and nondilated small bowel is not well seen. Colon is nondistended. No abnormal intraperitoneal fluid. Small amount of expected pneumoperitoneum. Ventral Wall: No hernias. Abdominal Nodes: No retroperitoneal or mesenteric adenopathy by size criteria. Vessels: Aorta and inferior vena cava are normal in size. PELVIS: Pelvic Organs: Unremarkable. Bladder: Unremarkable. Pelvic Nodes: No enlarged lymph nodes. Miscellaneous: No hernias are seen. Bones: Unremarkable. IMPRESSION: 1. Small amount of expected postsurgical pneumoperitoneum. 2. No significant change in small bowel obstruction. 3. New mild thickening of the small bowel, consistent with ischemia, infection, inflammation. 4. New left greater than right pleural effusions. 5. Cholelithiasis. Contracted gallbladder. Dictated by: Julius Vasquez M.D. on 04/11/2021 at 9:10 Approved by: Julius Vasquez M.D. on 04/11/2021 at 9:13
[2021-04-11 07:32] LABS: Procalcitonin 2.35 ng/mL (<0.5)
--- NOTE | 2021-04-11 07:44 | P.PN_ITS ---
Subjective Subjective Interval history: Patient feels okay. Denies any new pains. Still has a sore nose and throat. No increased pain in his abdomen in fact it is probably little better. No flatus though does feel rumbling. Exam Vital Signs (past 8 hours): - 04/10/21 23:45 04/11/21 00:59 04/11/21 01:45 Temperature 101.1 F H 100.2 F H Pulse Rate Respiratory Rate Blood Pressure Pulse Oximetry 94 04/11/21 05:32 04/11/21 05:35 04/11/21 05:46 Temperature 103.5 F H 103.5 F H Pulse Rate 75 77 Respiratory Rate 16 Blood Pressure 106/58 L 111/64 Pulse Oximetry 94 95 04/11/21 06:50 Temperature 101.3 F H Pulse Rate Respiratory Rate Blood Pressure Pulse Oximetry Oxygen Delivery Method Room Air Oxygen Flow Rate 0 Narrative Exam Narrative: Oral mucosa is dry. I see no evidence of thrush. No unusual redness. Lungs are clear to auscultation. Good effort. Heart regular rate and rhythm without murmur gallop. Is not tachycardic. Abdomen is distended but soft. No tenderness with fairly vigorous palpation. His wound looks okay. Urine output a little low. Objective Labs Result Diagrams: 04/11/21 06:40 04/11/21 06:40 Labs: Laboratory Results - last 24 hr 04/10/21 04/10/21 04/11/21 14:58 16:35 06:40 WBC 4.6 4.3 L RBC 4.08 L 3.89 L Hgb 12.9 L 12.4 L Hct 38.1 L 36.3 L MCV 93.3 93.2 MCH 31.5 31.8 MCHC 33.8 34.1 RDW 12.8 12.4 Plt Count 176 162 Neut % (Auto) 67.9 62.4 Lymph % (Auto) 13.6 L 16.5 L [place] % (Auto) 16.8 H 20.6 H Eos % (Auto) 0.2 L 0.2 L Baso % (Auto) 1.5 0.3 Neut # (Auto) 3100 2700 Lymph # (Auto) 600 L 700 L [place] # (Auto) 800 900 Eos # (Auto) 0 0 Baso # (Auto) 100 0 PT INR APTT Sodium Potassium Chloride Carbon Dioxide BUN Creatinine Estimated GFR BUN/Creatinine Ratio Glucose Lactate Calcium Magnesium Total Bilirubin AST ALT Alkaline Phosphatase Total Protein Albumin Globulin Albumin/Globulin Ratio Procalcitonin 1.64 H 04/11/21 04/11/21 04/11/21 06:40 06:40 06:40 WBC RBC Hgb Hct MCV MCH MCHC RDW Plt Count Neut % (Auto) Lymph % (Auto) [place] % (Auto) Eos % (Auto) Baso % (Auto) Neut # (Auto) Lymph # (Auto) [place] # (Auto) Eos # (Auto) Baso # (Auto) PT 15.0 H INR 1.3 APTT 32 Sodium 136 L Potassium 3.7 Chloride 104 Carbon Dioxide 26 BUN 29 H Creatinine 1.12 Estimated GFR > 60.0 BUN/Creatinine Ratio 25.9 H Glucose 131 H Lactate 1.1 Calcium 8.4 Magnesium 1.9 Total Bilirubin 0.5 AST 33 ALT 14 Alkaline Phosphatase 38 Total Protein 6.0 L Albumin 3.1 L Globulin 2.9 Albumin/Globulin Ratio 1.1 Procalcitonin 04/11/21 06:40 WBC RBC Hgb Hct MCV MCH MCHC RDW Plt Count Neut % (Auto) Lymph % (Auto) [place] % (Auto) Eos % (Auto) Baso % (Auto) Neut # (Auto) Lymph # (Auto) [place] # (Auto) Eos # (Auto) Baso # (Auto) PT INR APTT Sodium Potassium Chloride Carbon Dioxide BUN Creatinine Estimated GFR BUN/Creatinine Ratio Glucose Lactate Calcium Magnesium Total Bilirubin AST ALT Alkaline Phosphatase Total Protein Albumin Globulin Albumin/Globulin Ratio Procalcitonin 2.35 H [facility] Surgical History Status post splenectomy Social History household members: spouse and children Smoking Status: Former smoker alcohol intake: current Assessment & Plan Post-op Postoperative Procedures: Procedures Operation Date: 04/08/21 14:15 Actual Procedure Side Surgeon p exploratory laparotomy, small bowel resection, lysis of adhesions Not Applicable Zach Mitchell MD Postoperative status narrative: Patient has been febrile much of the night. T- max was 103?. I still have no obvious source on physical exam. I have broadened his antibiotics further with the addition of meropenem and the cessation of Rocephin. I have also added vancomycin. This should cover Enterococcus as well as MRSA should it be present. 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 His labs are reassuring except for rising procalcitonin. Urine output has been marginal so I will give him a bolus. I would like to get a CT scan of his abdomen after that. Like to see if there is any evidence of a leak or ischemia from possible compartment syndrome, though on physical exam I do not think this likely. Also he has a normal lactate which I would expect to be elevated if there is some significant abdominal event going on. He has had a slight increase in his creatinine and but is still within normal limits. Will continue to monitor that. Quality VTE Deep Vein Thrombosis/Pulmonary Embolism Present on Admission: No
[2021-04-11] MEDS: LACTATED RINGERS 1,000 ML 1000 ML IV ×3 (08:23→16:58)
[2021-04-11] MEDS: MEROPENEM 1 GM in SODIUM CHLORIDE 0.9% 100 ML 200 ML IV ×2 (09:39→16:58)
[2021-04-11] MEDS: FAMOTIDINE 20 MG/2 ML VIAL IV ×2 (11:18→21:07)
--- NOTE | 2021-04-11 11:30 | PM.PREOP ---
Pre-operative Note COVID-19 COVID-19 status: Negative Result date/Date tested (Pos, Neg/Pending): 04/07/21 Interval Note History & Physical reviewed/Exam performed by Physician: Yes Changes to H&P: Yes H&P completed within 30 days and has changed as indicated here:: Patient CT scan suggest within the differential a possibility of ischemia. He is a very small individual and I am concerned about compartment syndrome. If he was not febrile this would be less of a concern but now I feel compelled to proceed to the operating room to open his abdomen to relieve any tension and examine his intestine. Plan is to leave his abdomen open and at some point in the future return to close it. There was a great deal of uncertainty as to what I will find what I will do. I am even uncertain about the diagnosis and I explained this very frankly. Operation discussed with the patient and his . Will Proceed with his consent.
--- NOTE | 2021-04-11 11:43 | PC.NURSE ---
Pt alert and oriented, attentive in room. Pt up walking, Ng to LIS when in bed. output 700+ Dr. Mitchell in to see Pt. CT done IV boluses in progress. B/p . Pt and and discussed need to go back to surgery today. Consent signed. Lovenox held. Anticipate surgery this afternoon.
[2021-04-11] MEDS: LACTATED RINGERS 1,000 ML 120 ML IV (13:22)
--- NOTE | 2021-04-11 13:31 | SUR.OPER ---
ABDOMINAL INCISION LEFT OPEN. 2 XRAY DETECTABLE, COUNTED LAP SPONGES PACKED INTO ABDOMEN.
[2021-04-11 13:37] LABS: COVID19 -Nasal RAPID Negative (Negative)
[2021-04-11] MEDS: MEPERIDINE 50 MG/ML INJ 12.5 MG IV (14:17)
--- NOTE | 2021-04-11 14:22 | P.OP_ITS ---
Operative Date/Time/Diagnoses Date of procedure: 04/11/21 Time of procedure: 14:22 Pre-op diagnosis: Fever of unknown etiology. Possible compartment syndrome of the abdominal cavity Post-op diagnosis: other (Fever of unknown etiology. Unlikely that the abdominal cavity was a source of his temperature elevations.) Procedure & Clinicians Procedure: Exploratory laparotomy Same procedure as scheduled: Yes Indications: Patient is a gentleman who has developed temperatures to 103. He is 2 days out from an exploration for small bowel obstruction. Physical exam was not revealing for possible source of this fever. He was quite distended. CT scan suggested the possibility of ischemic intestine and therefore he was taken to the operating room for exploration. Surgeon: Zach Mitchell Click Yes if Unassisted: Yes Anesthesia Type: General Operative Notes Findings: Distended intestine but not ischemic. Air within the colon which was new. The anastomosis was widely patent and healthy. There was no evidence of leak. Closure Type: not applicable Specimen(s): none sent Prosthetic devices, grafts, tissues, transplants, or devices: Two counted lap pads are in the wound. This was intentional. There is a portion of an x-ray cover sheet over the intestine and an IO band over the abdominal wall. Two Amrik-Brown drains were placed adjacent to the lap pads. Applied: drain(s) Estimated Blood Loss (mL): 10 Blood products transfused: none Procedure in detail: The patient was placed supine on the operating room table. He underwent general endotracheal anesthesia. A Sullivan catheter was inserted into the bladder. His NG was connected to suction. His abdominal wall was washed with Betadine soap and then prepped with chlorhexidine and alcohol. He was draped in the usual fashion. He had a running 4-0 Vicryl subcuticular stitch which had closed the skin and which I removed. He had interrupted 3-0 Vicryl sutures in the subcu which I then removed. He had a running PDS suture for closure with 2 [id number] 0 Vicryl sutures which I also removed. This allowed his wound open. On entry the bowel was clearly viable though distended. I suction fluid from the abdomen. Nothing about it was concerning. I extended the wound superiorly to allow for adequate visualization of the proximal small bowel. I then delivered the small bowel into the wound and all of it was viable and healthy. It was however markedly distended especially proximally. There were no evidence of ischemia. There were no adhesions. The anastomosis was examined and appeared to be healthy and widely patent. Material within the distended small bowel easily passed through it. The colon was noted to be gas- filled which was not present at the last operation. It was healthy in appearanc e. I milked the contents of the small bowel back into the duodenum and using gastric suction (NG tube) it was removed. Over 2 L of material was suctioned free. This collapsed the small bowel significantly. The wall was still quite edematous. But there was no longer any distension. The small bowel was carefully returned to the abdomen making sure is to not to torque the mesentery. And the abdomen is irrigated and suctioned free of fluid. There were adhesions of omentum superior to my incision and I took these down sharply and with cautery. I did this to allow placement of a plastic sterile liner over the intestine which I planned to use as part of my closure. (I chose to leave his wound open at this time to eliminate confusion over an abdominal compartment syndrome versus other causes of his fever. He was febrile even in the operating room.) I obtained an x-ray cassette cover and cut it to fit the patient's abdominal wall contours. It was then placed in the abdomen over the entire small bowel from well above the incision, lateral to the anterior axillary line area and inferiorly to the pelvis. A dry lap was placed under the wound and over this and a 10 mm Amrik-Brown drain was placed at the lateral aspects of this dry gauze. These 2 drains were brought out through separate stab incisions through the subcu and skin inferior to the wound. There was secured with 3-0 nylon sutures. A moist lap was then placed over the drains so that there would be moist gauze on the skin and fascial layers. I then placed Mastisol all around the incision on the abdominal wall and placed a IOban over the entire abdominal wall. The 2 drain sites were further secured with Tegaderm brought together on a mesentery under the drain sites. The patient was awakened extubated and taken to the recovery room in good condition. He had made good urine during the operation though it was dark in color. Complications: none Post-operative Condition: stable Disposition: PACU
--- NOTE | 2021-04-11 14:23 | SUR.PHASEI ---
Pt received to PACU after general anesthesia. Airway patent, self maintained. Report from SACHIN Page and Dr Sahu. Pt with rigors - difficulty obtaining O2 sats. Placed on 100% NRB. Ear probe placed. Demerol given as ordered. O2 sats currently 98%.
[2021-04-11] MEDS: fentaNYL 100 MCG/2 ML INJ IV ×2 (14:40→14:50)
--- NOTE | 2021-04-11 14:44 | SUR.PHASEI ---
Right nares NGT. Placement confirmed with air bolus. Placed to LIS with green/brown drng.
--- NOTE | 2021-04-11 15:48 | SUR.PHASEI ---
Pt transferred to room 204 on 3LNC. in room. Bedside handoff to SACHIN Perez.
--- NOTE | 2021-04-11 16:45 | DI.RAD.S_ITS ---
PROCEDURE: XR CHEST FOR PICC 1V INDICATIONS: picc placement COMPARISON: None. FINDINGS: PICC was placed by the intravenous therapy team from the left side. Fluoroscopic spot film demonstrates the tip of PICC projecting to the area of inferior SVC. IMPRESSION: Tip of PICC projects to the area of inferior SVC. Dictated by: Frederic Mattson M.D. on 04/11/2021 at 17:00 Approved by: Frederic Mattson M.D. on 04/11/2021 at 17:01
[2021-04-11] MEDS: LACTATED RINGERS 1,000 ML 200 ML IV (16:58)
[2021-04-11] MEDS: BENZOCAINE/MENTHOL 1 LOZ PKT 1 EACH PO (21:07)
[2021-04-12] VITALS (12 sets, daily range): BP systolic 96–116; BP diastolic 59–69; PULSE 46–52; RESP 14–17; TEMP 36–37.1; O2SAT 93–99
[2021-04-12] MEDS: LACTATED RINGERS 1,000 ML 200 ML IV ×5 (00:30→22:24)
[2021-04-12] MEDS: MEROPENEM 1 GM in SODIUM CHLORIDE 0.9% 100 ML 200 ML IV ×3 (00:34→16:00)
[2021-04-12] MEDS: KETOROLAC 30 MG/ML VIAL IV ×3 (01:08→11:42)
[2021-04-12] MEDS: BENZOCAINE/MENTHOL 1 LOZ PKT 1 EACH PO ×4 (01:19→20:30)
[2021-04-12 06:10] LABS: Hematocrit 35.6 % (41-53); Hemoglobin 11.9 g/dL (13.5-17.5); Mean Corpuscular HGB Conc 33.5 % (30-36); Mean Corpuscular Hemoglobin 31.5 PG (26-34); Mean Corpuscular Volume 94.2 fL (80-100); Platelet Count 148 X10^3/uL (150-400); Red Blood Cell Count 3.78 X10^6/uL (4.5-5.9); White Blood Cell Count 5.1 X10^3/uL (4.5-11.0)
[2021-04-12 06:11] LABS: Alanine Aminotransferase 18 IU/L (<50); Albumin 2.6 g/dL (3.5-5.0); Alkaline Phosphatase 33 U/L (38-126); Aspartate Aminotransferase 50 IU/L (17-59); BUN Creatinine Ratio 31.1 (6-22); Bilirubin Total 0.3 mg/dL (0.2-1.3); Blood Urea Nitrogen 28 mg/dL (9-20); Carbon Dioxide 30 mmol/L (22-32); Chloride 105 mmol/L (98-107); Estimated Glomerular Filt Rate > 60.0 mL/min (>60); Globulin 2.7 g/dL (1.7-4.1); Glucose 112 mg/dL (70-100); HEMOLYSIS < 15 (0-50); Magnesium 2.1 mg/dL (1.6-2.3); Potassium 4.7 mmol/L (3.4-5.1); Sodium 139 mmol/L (137-145); Total Protein 5.3 g/dL (6.3-8.2)
[2021-04-12 06:26] LABS: Add Manual Diff / Slide Review YES
[2021-04-12] MEDS: VANCOMYCIN 1,000 MG/200 ML PIGGYBACK 200 MG IV ×2 (06:28→17:30)
[2021-04-12 06:57] LABS: Neutrophils Absolute Manual 2652 /uL (3000-5900); Total Cells Counted 100
[2021-04-12 06:58] LABS: RBC Morphology Normal Morphology
[2021-04-12] MEDS: LACTATED RINGERS 500 ML 1000 ML IV (09:00)
[2021-04-12] MEDS: ENOXAPARIN 40 MG/0.4 ML SYRINGE SUBCUT (09:08)
[2021-04-12] MEDS: FAMOTIDINE 20 MG/2 ML VIAL IV (09:08)
--- NOTE | 2021-04-12 11:34 | PM.PNPO.1 ---
Subjective Subjective Date Patient Seen: 04/12/21 Time Patient Seen: 11:34 Interval history: Abdominal pain along the incision, controllable with medication. No difficulty breathing. No febrile episodes since yesterday. Exam Vital Signs (past 8 hours): - 04/12/21 04:30 04/12/21 05:00 04/12/21 07:44 Temperature 97.8 F 96.8 F L Pulse Rate 51 L 48 L Respiratory Rate 14 16 Blood Pressure 96/62 104/63 Pulse Oximetry 99 99 97 04/12/21 10:26 04/12/21 10:27 Temperature Pulse Rate Respiratory Rate Blood Pressure Pulse Oximetry 99 99 Oxygen Delivery Method Room Air Oxygen Flow Rate 2 Narrative Exam Narrative: General adult male alert oriented no distress Abdomen temporary abdominal closure dressing in place. Two SAM drains serosanguineous output. Mildly distended compressible no peritonitis Extremities warm well perfused Objective Labs Result Diagrams: 04/12/21 05:40 04/12/21 05:40 Labs: Laboratory Results - last 24 hr 04/11/21 04/12/21 04/12/21 13:05 05:40 05:40 WBC 5.1 RBC 3.78 L Hgb 11.9 L Hct 35.6 L MCV 94.2 MCH 31.5 MCHC 33.5 RDW 13.0 Plt Count 148 L Neut % (Auto) Not Reportable Lymph % (Auto) Not Reportable [place] % (Auto) Not Reportable Eos % (Auto) Not Reportable Baso % (Auto) Not Reportable Lymph # (Auto) Not Reportable [place] # (Auto) Not Reportable Baso # (Auto) Not Reportable Total Counted 100 Seg Neutrophils % 3.0 L Band Neutrophils % 49.0 H Lymphocytes % (Manual) 13.0 L Atypical Lymphs % 4.0 H Monocytes % (Manual) 27.0 H Metamyelocytes % 4.0 H Neutrophils # (Manual) 2652 L Differential Comment RBC Morphology Normal morphology Sodium 139 Potassium 4.7 Chloride 105 Carbon Dioxide 30 BUN 28 H Creatinine 0.90 Estimated GFR > 60.0 BUN/Creatinine Ratio 31.1 H Glucose 112 H Calcium 8.0 L Magnesium 2.1 Total Bilirubin 0.3 AST 50 ALT 18 Alkaline Phosphatase 33 L Total Protein 5.3 L Albumin 2.6 L Globulin 2.7 Albumin/Globulin Ratio 1.0 SARS-CoV-2 (PCR) Negative [facility] Surgical History Status post splenectomy Social History household members: spouse and children Smoking Status: Former smoker alcohol intake: current Assessment & Plan Post-op Postoperative Procedures: Procedures Operation Date: 04/08/21 14:15 Actual Procedure Side Surgeon p exploratory laparotomy, small bowel resection, lysis of adhesions Not Applicable Zach Mitchell MD Operation Date: 04/11/21 12:30 Actual Procedure Side Surgeon p Exploratory Laparotomy GEN Not Applicable Zach Mitchell MD Postoperative status narrative: 50-year-old male admitted to the hospital for a small-bowel obstruction underwent a laparotomy and small-bowel resection several days ago return to the operating room yesterday for a laparotomy over concern for possible abdominal compartment syndrome and mesenteric ischemia. Currently open abdomen no respiratory difficulty, hemodynamically normal, bowel was viable yesterday. No leukocytosis however note is made of 49% bands on dif today. -NPO and TPN -continue Sullivan catheter -Continue Vancomycin and Meropenem -F/u blood cultures -SCDs and Lovenox -Anticipate return to OR Tuesday vs Tuesday for abdominal washout and closure Quality VTE Deep Vein Thrombosis/Pulmonary Embolism Present on Admission: No
--- NOTE | 2021-04-12 15:30 | PC.NURSE ---
Addendum entered by Grace Fabian R.N. 04/12/21 15:39: MD Tenorio notified of decreased urine output. Received orders for x1 Liter LR bolus. Original Note: Pt with decreased output <140cc over 4 hour period at 50cc during the night. MD Beal notified per orders. Recieved orders for x1 time bolus LR 500cc. Pt with 175cc output dark yellow urine between 0700 and 1100, between 1100 and 1500 patient only with 100 cc urine output. Noted 350cc dark brown fluid to NGT this a.m. shift. and rosita x2 drains draining moderate amounts of serosanguienous fluid. Paged MD for decreased urine output this afternoon, and endorsed to oncoming shift for follow up as page not yet returned. VSS, at baseline bradycardia, afebrile, weaned to RA 97% RRR, + BS x4.
--- NOTE | 2021-04-12 15:34 | CM.DPC ---
DCP Cont: Patient had surgery, exploratory, yesterday to rule out infection. He is on TPN, and there are plans for patient to return to OR Tuesday or Tue for abdominal washout and closure. P: DCP to continue to follow. Patient will be able to go home when medically stable, but anticipate that he will be here for a few days, since he will be having another surgery. Emerald Gastelum RN/Professor [employer]
[2021-04-12] MEDS: HYDROMORPHONE 1 MG INJ IV ×2 (16:00→20:10)
[2021-04-12] MEDS: LACTATED RINGERS 1,000 ML 500 ML IV ×2 (16:09→20:30)
[2021-04-12] MEDS: AA 5 %/CALCIUM/LYTES/DEXT 20 % 1,000 ML with MULTIVITAMIN 10 ML, TRACE ELEMENTS 1 ML, F... 42.296 ML IV (18:00)
[2021-04-12] MEDS: FAT EMULSIONS 50 GM/250 ML EMULSION IV (18:00)
--- NOTE | 2021-04-12 18:51 | PC.NURSE ---
PATIENT UP AMB IN ROOM SBA ,SEVERAL TIME ACROSS ROOM
[2021-04-13] VITALS (12 sets, daily range): BP systolic 103–119; BP diastolic 57–75; PULSE 50–54; RESP 16; TEMP 36.3–37.2; O2SAT 94–97
[2021-04-13] MEDS: MEROPENEM 1 GM in SODIUM CHLORIDE 0.9% 100 ML 200 ML IV ×3 (00:08→15:36)
[2021-04-13] MEDS: HYDROMORPHONE 1 MG INJ IV ×8 (00:08→22:47)
[2021-04-13] MEDS: BENZOCAINE/MENTHOL 1 LOZ PKT 1 EACH PO ×3 (00:27→15:52)
[2021-04-13] MEDS: LACTATED RINGERS 1,000 ML 200 ML IV (04:21)
[2021-04-13] MEDS: VANCOMYCIN 1,000 MG/200 ML PIGGYBACK 200 MG IV (05:53)
[2021-04-13 06:55] LABS: Add Manual Diff / Slide Review NO; Basophils Absolute Auto 0 /uL (0-100); Basophils Percent Auto 0.4 % (0-2); Eosinophils Absolute Auto 200 /uL (0-450); Eosinophils Percent Auto 3.4 % (2-4); Hematocrit 34.2 % (41-53); Hemoglobin 11.5 g/dL (13.5-17.5); Lymphocytes Absolute Auto 1300 /uL (1100-4500); Lymphocytes Percent Auto 17.4 % (25-40); Mean Corpuscular HGB Conc 33.6 % (30-36); Mean Corpuscular Hemoglobin 31.4 PG (26-34); Mean Corpuscular Volume 93.5 fL (80-100); Monocytes Absolute Auto 1200 /uL (0-900); Monocytes Percent Auto 16.5 % (3-14); Neutrophils Absolute Auto 4600 /uL (1500-7000); Neutrophils Percent Auto 62.3 % (50-75); Platelet Count 138 X10^3/uL (150-400); Red Blood Cell Count 3.65 X10^6/uL (4.5-5.9); Red Cell Distribution Width 13.1 % (11.6-14.8); White Blood Cell Count 7.3 X10^3/uL (4.5-11.0)
[2021-04-13 07:02] LABS: BUN Creatinine Ratio 35.9 (6-22); Blood Urea Nitrogen 23 mg/dL (9-20); Calcium 7.7 mg/dL (8.4-10.2); Carbon Dioxide 26 mmol/L (22-32); Chloride 108 mmol/L (98-107); Estimated Glomerular Filt Rate > 60.0 mL/min (>60); Glucose 122 mg/dL (70-100); HEMOLYSIS 20 (0-50); Potassium 3.6 mmol/L (3.4-5.1); Sodium 135 mmol/L (137-145)
--- NOTE | 2021-04-13 07:21 | DI.RAD.S_ITS ---
PROCEDURE: XR ABDOMEN 1V INDICATIONS: ileus TECHNIQUE: One view of the abdomen acquired. COMPARISON: [facility], CT, CT ABDOMEN PELVIS W CON, 04/11/2021, 9:38. FINDINGS: Surgical changes and devices: Enteric tube with the tip in the gastric fundus. Several mid abdominal surgical drains. Bowel: A few prominent loops of bowel seen. There is relative paucity of small bowel gas limiting evaluation. There is a small amount of persistent enteric contrast in the left colon. Soft tissues: No suspicious abdominal calcifications. Visualized solid organ contours appear normal in size. Bones: No suspicious bony lesions. Suspect basilar atelectasis. IMPRESSION: Possible persistent prominent loops of small bowel in the right abdomen. Which could be due to persistent small bowel obstruction. Paucity of small bowel gas limits evaluation. Persistent enteric contrast in the left colon. This could be seen in ileus. If clinically indicated CT abdomen pelvis with IV contrast could be performed for further evaluation. Dictated by: Parag Carrera M.D. on 04/13/2021 at 8:33 Approved by: Parag Carrera M.D. on 04/13/2021 at 8:37
[2021-04-13] MEDS: POTASSIUM CHLORIDE IN WATER 10 MEQ/100 ML PIGGYBACK 100 MEQ IV ×4 (08:28→12:06)
[2021-04-13] MEDS: ENOXAPARIN 40 MG/0.4 ML SYRINGE SUBCUT (08:56)
[2021-04-13] MEDS: FUROSEMIDE 40 MG/4 ML VIAL IV (09:58)
--- NOTE | 2021-04-13 12:43 | PC.NURSE ---
Day shift: Called and left message on Dr Tenorio's phone regaurding Pt's urine output of >3000mls since the IV Lasix was given. Will continue to monitor.
--- NOTE | 2021-04-13 12:50 | P.PN_ITS ---
Subjective Subjective Date Patient Seen: 04/13/21 Time Patient Seen: 12:53 Interval history: No major overnight events. Pain inadequately controlled. No flatus or BM. Exam Vital Signs (past 8 hours): - 04/13/21 05:00 04/13/21 08:10 04/13/21 08:26 Temperature 98.6 F Pulse Rate 53 L Respiratory Rate 16 Blood Pressure 119/67 Pulse Oximetry 95 94 97 04/13/21 12:25 04/13/21 12:45 Temperature 99.0 F Pulse Rate 54 L Respiratory Rate 16 Blood Pressure 103/57 L Pulse Oximetry 95 95 Oxygen Delivery Method Room Air Oxygen Flow Rate 0 Narrative Exam Narrative: Gen-Adult man alert oriented Chest-non labored resp Abdomen-Temporary open abdominal dressing. Soft compressible Ext-pitting edema Objective Labs Result Diagrams: 04/13/21 06:40 04/13/21 06:40 Labs: Laboratory Results - last 24 hr 04/12/21 04/13/21 04/13/21 20:30 06:40 06:40 WBC 7.3 RBC 3.65 L Hgb 11.5 L Hct 34.2 L MCV 93.5 MCH 31.4 MCHC 33.6 RDW 13.1 Plt Count 138 L Neut % (Auto) 62.3 Lymph % (Auto) 17.4 L [place] % (Auto) 16.5 H Eos % (Auto) 3.4 Baso % (Auto) 0.4 Neut # (Auto) 4600 Lymph # (Auto) 1300 [place] # (Auto) 1200 H Eos # (Auto) 200 Baso # (Auto) 0 Sodium 135 L Potassium 3.6 Chloride 108 H Carbon Dioxide 26 BUN 23 H Creatinine 0.64 L Estimated GFR > 60.0 BUN/Creatinine Ratio 35.9 H Glucose 122 H Calcium 7.7 L Vancomycin Peak 16.0 L PFSH Surgical History Status post splenectomy Social History household members: spouse and children Smoking Status: Former smoker alcohol intake: current Assessment & Plan Post-op Postoperative Procedures: Procedures Operation Date: 04/08/21 14:15 Actual Procedure Side Surgeon p exploratory laparotomy, small bowel resection, lysis of adhesions Not Applicable Zach Mitchell MD Operation Date: 04/11/21 12:30 Actual Procedure Side Surgeon p Exploratory Laparotomy GEN Not Applicable Zach Mitchell MD Operation Date: 04/15/21 17:15 <No data on this case meets the specified criteria> Postoperative status narrative: 50M sp exlap for SBO with subsequent take back now POD 2 sp laparotomy for abdominal compartment syndrome doing well. -Return to OR tomorrow for abdominal washout and likely closure -DC IVF continue TPN -Diuresis -NPO -Continue sweeney -K repalcement -SCDs and Lovenox Quality VTE Deep Vein Thrombosis/Pulmonary Embolism Present on Admission: No
[2021-04-13] MEDS: VANCOMYCIN 1,250 MG/250 ML PIGGYBACK 250 MG IV ×2 (13:00→21:07)
--- NOTE | 2021-04-13 13:13 | DIET.PN ---
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 RD screened pt as pt started TPN last evening. Pt currently NPO tolerating 1L Clinimix running @42mL/hr providing 56% protein and 42% kcal needs. Pt scheduled for abdominal closure Tues or Wed this week. HT: 185.4cm WT: 70.3kg BMI: 20.4 Labs: refeeding labs WNL Nutrition Diagnosis: inadequate protein energy intake r/t NPO status c TPN aeb pts current TPN rate provides 56% PRO and 42% kcal needs, pt unlikely to consume per PO x 3-4 more days, pt c current open abdomen returning for closure in 1-2d. Interventions: 1. Recc increasing TPN to 2L Clinimix (83mL/h) which provides 109% protein and 83% calorie needs plus micronutrients. Please adjust IV fluids accordingly. 2. Daily weights please Diet Order: NPO c TPN EER: 91 g PRO (1.3g/kg per postsurgical), 2100 kcals (30kcal/kg per post surgical) Monitoring/Evaluations: following daily
[2021-04-13] MEDS: LACTATED RINGERS 1,000 ML 21 ML IV (15:42)
[2021-04-13] MEDS: AA 5 %/CALCIUM/LYTES/DEXT 20 % 1,000 ML with MULTIVITAMIN 10 ML, TRACE ELEMENTS 1 ML, F... 42.296 ML IV (18:41)
[2021-04-13] MEDS: BISACODYL 10 MG SUPP PR (18:43)
--- NOTE | 2021-04-13 23:36 | PC.NURSE ---
Call placed to on-call Dr. Tenorio to inform of 325mL output in sweeney after [address] Tenorio requested this be discontinued. Edited order to notify if <140mL in 4 hours only and took out to notify if more >300 in 4 hours.
[2021-04-14] VITALS (24 sets, daily range): BP systolic 101–122; BP diastolic 47–91; PULSE 42–94; RESP 9–19; TEMP 36.4–37.7; O2SAT 92–98; BMI 20.4
[2021-04-14] MEDS: MEROPENEM 1 GM in SODIUM CHLORIDE 0.9% 100 ML 200 ML IV ×4 (00:17→23:42)
[2021-04-14] MEDS: HYDROMORPHONE 1 MG INJ IV ×7 (01:14→23:41)
[2021-04-14] MEDS: BENZOCAINE/MENTHOL 1 LOZ PKT 1 EACH PO ×3 (05:26→22:38)
[2021-04-14] MEDS: VANCOMYCIN 1,250 MG/250 ML PIGGYBACK 250 MG IV ×3 (05:47→21:32)
[2021-04-14 07:17] LABS: Add Manual Diff / Slide Review NO; Basophils Absolute Auto 0 /uL (0-100); Basophils Percent Auto 0.3 % (0-2); Eosinophils Absolute Auto 300 /uL (0-450); Eosinophils Percent Auto 2.7 % (2-4); Hematocrit 35.3 % (41-53); Hemoglobin 11.9 g/dL (13.5-17.5); Lymphocytes Absolute Auto 1300 /uL (1100-4500); Lymphocytes Percent Auto 10.9 % (25-40); Mean Corpuscular HGB Conc 33.8 % (30-36); Mean Corpuscular Hemoglobin 31.3 PG (26-34); Mean Corpuscular Volume 92.7 fL (80-100); Monocytes Absolute Auto 1800 /uL (0-900); Neutrophils Absolute Auto 8400 /uL (1500-7000); Neutrophils Percent Auto 71.1 % (50-75); Platelet Count 163 X10^3/uL (150-400); Red Blood Cell Count 3.81 X10^6/uL (4.5-5.9); Red Cell Distribution Width 12.9 % (11.6-14.8); White Blood Cell Count 11.8 X10^3/uL (4.5-11.0)
[2021-04-14 07:24] LABS: BUN Creatinine Ratio 25.9 (6-22); Blood Urea Nitrogen 15 mg/dL (9-20); Calcium 7.8 mg/dL (8.4-10.2); Carbon Dioxide 25 mmol/L (22-32); Chloride 104 mmol/L (98-107); Estimated Glomerular Filt Rate > 60.0 mL/min (>60); Glucose 112 mg/dL (70-100); HEMOLYSIS < 15 (0-50); Potassium 3.9 mmol/L (3.4-5.1); Sodium 135 mmol/L (137-145)
[2021-04-14 07:41] LABS: Procalcitonin 1.98 ng/mL (<0.5)
[2021-04-14] MEDS: ENOXAPARIN 40 MG/0.4 ML SYRINGE SUBCUT (08:31)
--- NOTE | 2021-04-14 11:32 | P.PN_ITS ---
Subjective Subjective Date Patient Seen: 04/14/21 Time Patient Seen: 11:32 Interval history: +BM, feels less distended then yesterday. No flatus. Exam Vital Signs (past 8 hours): - 04/14/21 04:00 04/14/21 05:00 04/14/21 07:27 Temperature 98.0 F 98.4 F Pulse Rate 49 L 50 L Respiratory Rate 16 14 Blood Pressure 113/76 106/64 Pulse Oximetry 97 97 96 04/14/21 08:59 Temperature Pulse Rate Respiratory Rate Blood Pressure Pulse Oximetry 96 Oxygen Delivery Method Room Air Oxygen Flow Rate 0 Narrative Exam Narrative: Gen-Adult male no acute distress Abdomen-Distended slightly less then yesterday NGT bilious drains SS, appropriately tender to palpation Extm-Edema resolved. Objective Labs Result Diagrams: 04/14/21 06:55 04/14/21 06:55 Labs: Laboratory Results - last 24 hr 04/14/21 04/14/21 04/14/21 06:55 06:55 06:55 WBC 11.8 H D RBC 3.81 L Hgb 11.9 L Hct 35.3 L MCV 92.7 MCH 31.3 MCHC 33.8 RDW 12.9 Plt Count 163 Neut % (Auto) 71.1 Lymph % (Auto) 10.9 L [place] % (Auto) 15.0 H Eos % (Auto) 2.7 Baso % (Auto) 0.3 Neut # (Auto) 8400 H Lymph # (Auto) 1300 [place] # (Auto) 1800 H Eos # (Auto) 300 Baso # (Auto) 0 Sodium 135 L Potassium 3.9 Chloride 104 Carbon Dioxide 25 BUN 15 Creatinine 0.58 L Estimated GFR > 60.0 BUN/Creatinine Ratio 25.9 H Glucose 112 H Calcium 7.8 L Procalcitonin 1.98 H PFSH Surgical History Status post splenectomy Social History household members: spouse and children Smoking Status: Former smoker alcohol intake: current Assessment & Plan Post-op Postoperative Procedures: Procedures Operation Date: 04/08/21 14:15 Actual Procedure Side Surgeon p exploratory laparotomy, small bowel resection, lysis of adhesions Not Applicable Zach Mitchell MD Operation Date: 04/11/21 12:30 Actual Procedure Side Surgeon p Exploratory Laparotomy GEN Not Applicable Zach Mitchell MD Operation Date: 04/14/21 15:15 <No data on this case meets the specified criteria> Postoperative status narrative: 50M with open abdomen resolved compartment syndrome -return to OR today. Abdominal washout possible closure. -Leukocytosis today. CXR clean abdominal drain serosanginous. Ordered UA. Culture abdominal fluid in OR today. Continue Meropenem and Vanc -SCDs and pLovenox -Continue NGT until resolution of ileus Quality VTE Deep Vein Thrombosis/Pulmonary Embolism Present on Admission: No
--- NOTE | 2021-04-14 12:26 | DI.RAD.S_ITS ---
PROCEDURE: XR ACUTE ABDOMEN SERIES INDICATIONS: follow up films. assess small bowel distention TECHNIQUE: One view chest and two views of the abdomen were acquired. COMPARISON: [facility], , XR ACUTE ABDOMEN SERIES, 04/10/2021, 13:18. FINDINGS: Surgical changes and devices: NG tube projects across the GE junction with tip and side port in the proximal stomach. The kink of the NG tube at the side port. Surgical drains project over the midline of the lower abdomen/upper pelvis. Chest: Lungs are clear. Heart size is normal. No pleural effusions. No pneumoperitoneum. Abdomen: Dilated loops of small bowel noted in the mid abdomen with largest sleep measuring 4.4 centimeters. No suspicious calcifications. Visualized solid organ contours appear normal. Bones: No suspicious bony lesions. IMPRESSION: Dilated loops of small bowel which could represent ileus or small-bowel obstruction. Dictated by: Helen Peterson MD, PhD on 04/14/2021 at 7:14 Approved by: Helen Peterson MD, PhD on 04/14/2021 at 7:15
[2021-04-14] MEDS: VANCOMYCIN TROUGH 1 REQUEST MISC (12:58)
[2021-04-14 13:07] LABS: RBC Urine None Seen (0-5/HPF)
[2021-04-14 13:10] LABS: Appearance Urine UA CLEAR; Bilirubin Urine UA NEGATIVE (NEGATIVE); Color Urine UA YELLOW; Glucose Urine UA NEGATIVE (Negative); Ketones Urine UA NEGATIVE (NEGATIVE); Leukocyte Esterase Urine UA NEGATIVE (NEGATIVE); Nitrite Urine UA NEGATIVE (Negative); Occult Blood Urine UA TRACE-LYSED (Negative); Protein Urine UA 1+ (Negative); Urobilinogen Urine UA 0.2 E.U./dL (0.2)
[2021-04-14 13:21] LABS: Bacteria Urine Occasional (0-1); Culture Indicated Urine Cult Not Indicated; WBC Urine 0-1/HPF (0-5/HPF)
[2021-04-14 13:26] LABS: Vancomycin Trough 11.4 ug/mL (10-20)
[2021-04-14 16:16] LABS: Vancomycin Peak 28.6 ug/mL (20-40)
--- NOTE | 2021-04-14 16:38 | PM.PNPO.1 ---
Subjective Subjective Date Patient Seen: 04/14/21 Time Patient Seen: 16:38 Interval history: The patient is ready to have his abdomen closed if possible. No new symptoms. had 2 bowel movements. Exam Vital Signs (past 8 hours): - 04/14/21 08:59 04/14/21 11:26 04/14/21 12:03 Temperature 98.5 F Pulse Rate 47 L Respiratory Rate 16 Blood Pressure 117/67 Pulse Oximetry 96 98 95 04/14/21 15:42 Temperature 97.8 F Pulse Rate 48 L Respiratory Rate 13 Blood Pressure 111/66 Pulse Oximetry 97 Oxygen Delivery Method Room Air Oxygen Flow Rate 0 Narrative Exam Narrative: Lungs good effort. Abdomen is less distended, soft. Dressing on abdominal wall is secure. Drainage is serous. Patient is alert and oriented. Objective Labs Result Diagrams: 04/14/21 06:55 04/14/21 06:55 Labs: Laboratory Results - last 24 hr 04/14/21 04/14/21 04/14/21 06:55 06:55 06:55 WBC 11.8 H D RBC 3.81 L Hgb 11.9 L Hct 35.3 L MCV 92.7 MCH 31.3 MCHC 33.8 RDW 12.9 Plt Count 163 Neut % (Auto) 71.1 Lymph % (Auto) 10.9 L [place] % (Auto) 15.0 H Eos % (Auto) 2.7 Baso % (Auto) 0.3 Neut # (Auto) 8400 H Lymph # (Auto) 1300 [place] # (Auto) 1800 H Eos # (Auto) 300 Baso # (Auto) 0 Sodium 135 L Potassium 3.9 Chloride 104 Carbon Dioxide 25 BUN 15 Creatinine 0.58 L Estimated GFR > 60.0 BUN/Creatinine Ratio 25.9 H Glucose 112 H Calcium 7.8 L Procalcitonin 1.98 H Urine Color Urine Appearance Urine pH Ur Specific [place] Urine Protein Urine Glucose (UA) Urine Ketones Urine Occult Blood Urine Nitrate Urine Bilirubin Urine Urobilinogen Ur Leukocyte Esterase Urine RBC Urine WBC Urine Bacteria Ur Culture Indicated? Vancomycin Peak Vancomycin Trough 04/14/21 04/14/21 04/14/21 12:34 12:50 14:30 WBC RBC Hgb Hct MCV MCH MCHC RDW Plt Count Neut % (Auto) Lymph % (Auto) [place] % (Auto) Eos % (Auto) Baso % (Auto) Neut # (Auto) Lymph # (Auto) [place] # (Auto) Eos # (Auto) Baso # (Auto) Sodium Potassium Chloride Carbon Dioxide BUN Creatinine Estimated GFR BUN/Creatinine Ratio Glucose Calcium Procalcitonin Urine Color Yellow Urine Appearance Clear Urine pH 7.0 Ur Specific [place] 1.010 Urine Protein 1+ H Urine Glucose (UA) Negative Urine Ketones Negative Urine Occult Blood Trace-lysed Urine Nitrate Negative Urine Bilirubin Negative Urine Urobilinogen 0.2 Ur Leukocyte Esterase Negative Urine RBC None seen Urine WBC 0-1/hpf Urine Bacteria Occasional (0-1) Ur Culture Indicated? Cult not indicated Vancomycin Peak 28.6 Vancomycin Trough 11.4 PFSH Surgical History Status post splenectomy Social History household members: spouse and children Smoking Status: Former smoker alcohol intake: current Assessment & Plan Post-op Postoperative Procedures: Procedures Operation Date: 04/08/21 14:15 Actual Procedure Side Surgeon p exploratory laparotomy, small bowel resection, lysis of adhesions Not Applicable Zach Mitchell MD Operation Date: 04/11/21 12:30 Actual Procedure Side Surgeon p Exploratory Laparotomy GEN Not Applicable Zach Mitchell MD Operation Date: 04/14/21 15:15 <No data on this case meets the specified criteria> Postoperative status narrative: Patient seems to be clinically improving. White blood cell count is up a little bit which actually is probably more appropriate given where he is. He seems to begun having bowel function. Urine output has been excellent and his creatinine has gone down with hydration. He is making excellent urine. And probably mobilizing his 3rd space. Postoperative plan narrative: Will irrigate out abdomen and close it. I discussed this with the patient. There may be something at the time that precludes my doing so but I do not think that is likely. X-rays, though showing small bowel distension it is I believe markedly improved from before. Time will tell when I get into the abdomen. All questions were answered. Quality VTE Deep Vein Thrombosis/Pulmonary Embolism Present on Admission: No
--- NOTE | 2021-04-14 16:43 | PM.PREOP ---
Pre-operative Note COVID-19 COVID-19 status: Negative Result date/Date tested (Pos, Neg/Pending): 04/11/21 Interval Note History & Physical reviewed/Exam performed by Physician: Yes Changes to H&P: No H&P completed within 30 days and has changed as indicated here:: Risks bleeding infection hernia and possible need for additional procedures discussed.
[2021-04-14] MEDS: HYDROMORPHONE 2 MG INJ IV ×3 (16:51→18:44)
--- NOTE | 2021-04-14 16:58 | SUR.HOLD ---
Medicated for pain 01/[address] Mitchell. Pt on continuous pulse oximeter, HR 48, sat 99%. present. Patient awake and oriented. NG to JULIEN. Anesthesia talking to the patient currently.
--- NOTE | 2021-04-14 17:03 | PC.NURSE ---
Patient down to surgery at 1515. Vanco peak needed to be drawn at 1600. Discussed with pharmacy and they suggested to draw now. Went into patient room and RN taking patient down for surgery said she would draw this. Tube with labels given to RN.
--- NOTE | 2021-04-14 18:12 | P.OP_ITS ---
Operative Date/Time/Diagnoses Date of procedure: 04/14/21 Time of procedure: 18:13 Pre-op diagnosis: Post exploration for abdominal compartment syndrome with an open abdomen. Post-op diagnosis: same Procedure & Clinicians Procedure: Expiration and abdominal fascial wound closure. Same procedure as scheduled: Yes Indications: Patient has an open abdomen from a prior exploration. He is brought back to the operating room after stabilization and improvement in the distention of the small bowel in order to close his abdomen. Surgeon: Zach Mitchell Click Yes if Unassisted: Yes Anesthesia Type: General Operative Notes Findings: Viable bowel less distended. There were adhesions between loops of bowel and from the omentum to the anterior surface of the bowel which I left intact as they were becoming dense. The intestine was free from the abdominal wall however. Fluid was irrigated and suction from the gutters and pelvis. 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 Closure Type: primary Specimen(s): other (Cultures) Prosthetic devices, grafts, tissues, transplants, or devices: None Estimated Blood Loss (mL): 5 Blood products transfused: none Procedure in detail: The patient was placed supine on the operating room table. He is IO band placed at the last operation was removed and 1 of the 2 lap pads were removed. The skin around the incision was prepped with chlorhe xidine/alcohol. This was allowed to dry. The drains were removed by cutting the suture and pulling them out. These were located inferior to the incision. Then the skin at the edge which had not been prepped with the alcohol containing solution was prepped with Betadine as was the rest the abdominal wall. The patient was draped. The remaining lap was removed and cultures taken of the peritoneal fluid. The plastic bag which had been used between the abdominal wall and the intestine was removed. The os, all the materials from his prior exploration had been removed. In examining the intestine it was all viable and far less distended than it had been. However in he shins that were becoming dense were forming between loops of bowel and I decided not to break any these down. I irrigated over the tops and the gutters and pelvis. This fluid was suctioned free. The fascia was then closed with a running 1. PDS with occasional interrupted [id number] 0 Vicryl. The subQ was irrigated and the skin was closed with sharad. Dressing was applied the patient was awakened extubated and taken the recovery area in good condition. Complications: none Post-operative Condition: stable Disposition: PACU
[2021-04-14] MEDS: fentaNYL 100 MCG/2 ML INJ IV (18:30)
[2021-04-14] MEDS: OXYCODONE IR 5 MG TABLET PO (18:48)
--- NOTE | 2021-04-14 19:27 | SUR.PHASEI ---
report to RN pt transported to 204 by SACHIN Mendez. Pt reports pain decreased from 8-5 or 6 after 0.5 mg dilaudid, 25mcg of dilaudid and 5mg oxycodone IR crushed and mixed in sterile water and flushed into NG tube. Not all of the solution was administered as there was a large clog at the opening. This was reported to RN and asked her to flush air thru the tubing in hopes he would receive the pain solution for better control.
[2021-04-14] MEDS: LACTATED RINGERS 1,000 ML 120 ML IV (19:34)
[2021-04-14] MEDS: VANCOMYCIN PEAK 1 REQUEST MISC (19:34)
[2021-04-14] MEDS: [UNRECOGNIZED DRUG - OTHER] IV (19:38)
[2021-04-14] MEDS: DEXT IV (19:38)
[2021-04-14] MEDS: CALCIUM IV (19:38)
[2021-04-14] MEDS: MULTIVITAMIN IV (19:38)
[2021-04-14] MEDS: LYTES IV (19:38)
[2021-04-14] MEDS: FAMOTIDINE IV (19:38)
--- NOTE | 2021-04-14 20:35 | PC.NURSE ---
Pt back up to unit around 174. Patient had crushed oxycodone stuck in NG tubing which was relayed to me by PACU nurse. Flushed with sterile water. Will reconnect suction once absorbed. TPN started along with IVF. Dilaudid given as patient experiencing 7-8/10 pain in his abdomen. Dressing has small amount of shadow drainage but otherwise dry and intact. SCDs refused at this time. Sullivan patent and draining. at bedside and is attentive to the patient.
[2021-04-15] VITALS (10 sets, daily range): BP systolic 104–116; BP diastolic 65–73; PULSE 41–50; RESP 15–16; TEMP 36.2–36.8; O2SAT 94–99
[2021-04-15] MEDS: VANCOMYCIN 1,250 MG/250 ML PIGGYBACK 250 MG IV ×3 (04:37→20:58)
[2021-04-15] MEDS: HYDROMORPHONE 1 MG INJ IV ×4 (04:37→18:04)
[2021-04-15] MEDS: LACTATED RINGERS 1,000 ML 120 ML IV (04:38)
[2021-04-15 06:01] LABS: Add Manual Diff / Slide Review NO; Basophils Absolute Auto 0 /uL (0-100); Basophils Percent Auto 0.3 % (0-2); Eosinophils Absolute Auto 0 /uL (0-450); Hematocrit 35.5 % (41-53); Hemoglobin 11.8 g/dL (13.5-17.5); Lymphocytes Absolute Auto 1000 /uL (1100-4500); Lymphocytes Percent Auto 9.1 % (25-40); Mean Corpuscular HGB Conc 33.2 % (30-36); Mean Corpuscular Hemoglobin 30.9 PG (26-34); Mean Corpuscular Volume 92.8 fL (80-100); Monocytes Absolute Auto 1100 /uL (0-900); Neutrophils Absolute Auto 9000 /uL (1500-7000); Neutrophils Percent Auto 80.6 % (50-75); Platelet Count 202 X10^3/uL (150-400); Red Blood Cell Count 3.83 X10^6/uL (4.5-5.9); Red Cell Distribution Width 13.1 % (11.6-14.8); White Blood Cell Count 11.2 X10^3/uL (4.5-11.0)
[2021-04-15 06:11] LABS: BUN Creatinine Ratio 18.5 (6-22); Blood Urea Nitrogen 12 mg/dL (9-20); Calcium 8.1 mg/dL (8.4-10.2); Carbon Dioxide 28 mmol/L (22-32); Chloride 104 mmol/L (98-107); Estimated Glomerular Filt Rate > 60.0 mL/min (>60); Glucose 131 mg/dL (70-100); HEMOLYSIS < 15 (0-50); Sodium 134 mmol/L (137-145)
[2021-04-15 06:17] LABS: Potassium 5.2 mmol/L (3.4-5.1)
[2021-04-15] MEDS: MEROPENEM 1 GM in SODIUM CHLORIDE 0.9% 100 ML 200 ML IV ×2 (08:07→16:13)
[2021-04-15] MEDS: ENOXAPARIN 40 MG/0.4 ML SYRINGE SUBCUT (08:07)
--- NOTE | 2021-04-15 10:51 | P.PN_ITS ---
Subjective Subjective Date Patient Seen: 04/15/21 Time Patient Seen: 10:52 Interval history: The patient is a gentleman who had an with abdominal wall closure yesterday. He is having some pain but otherwise doing well. No flatus or bowel movement as expected. Exam Vital Signs (past 8 hours): - 04/15/21 04:00 04/15/21 05:51 04/15/21 10:30 Temperature 98.1 F Pulse Rate 50 L Respiratory Rate 16 Blood Pressure 104/65 Pulse Oximetry 94 95 95 04/15/21 10:42 Temperature 98.1 F Pulse Rate 44 L Respiratory Rate 15 Blood Pressure 116/71 Pulse Oximetry 95 Oxygen Delivery Method Room Air Oxygen Flow Rate 0 Narrative Exam Narrative: Cooperative no apparent distress. Lungs are clear. Excellent effort. Heart regular rate and rhythm without murmur gallop. No tachycardia noted on vitals. Blood pressure is been okay. Abdomen is distended as expec sondra. The dressings are dry and intact. Alert and oriented. Large amount of urine output. Objective Labs Result Diagrams: 04/15/21 05:50 04/15/21 05:50 Labs: Laboratory Results - last 24 hr 04/14/21 04/14/21 04/14/21 12:34 12:50 14:30 WBC RBC Hgb Hct MCV MCH MCHC RDW Plt Count Neut % (Auto) Lymph % (Auto) [place] % (Auto) Eos % (Auto) Baso % (Auto) Neut # (Auto) Lymph # (Auto) [place] # (Auto) Eos # (Auto) Baso # (Auto) Sodium Potassium Chloride Carbon Dioxide BUN Creatinine Estimated GFR BUN/Creatinine Ratio Glucose Calcium Urine Color Yellow Urine Appearance Clear Urine pH 7.0 Ur Specific [place] 1.010 Urine Protein 1+ H Urine Glucose (UA) Negative Urine Ketones Negative Urine Occult Blood Trace-lysed Urine Nitrate Negative Urine Bilirubin Negative Urine Urobilinogen 0.2 Ur Leukocyte Esterase Negative Urine RBC None seen Urine WBC 0-1/hpf Urine Bacteria Occasional (0-1) Ur Culture Indicated? Cult not indicated Vancomycin Peak 28.6 Vancomycin Trough 11.4 04/15/21 04/15/21 05:50 05:50 WBC 11.2 H RBC 3.83 L Hgb 11.8 L Hct 35.5 L MCV 92.8 MCH 30.9 MCHC 33.2 RDW 13.1 Plt Count 202 Neut % (Auto) 80.6 H Lymph % (Auto) 9.1 L [place] % (Auto) 10.0 Eos % (Auto) 0.0 L Baso % (Auto) 0.3 Neut # (Auto) 9000 H Lymph # (Auto) 1000 L [place] # (Auto) 1100 H Eos # (Auto) 0 Baso # (Auto) 0 Sodium 134 L Potassium 5.2 H D Chloride 104 Carbon Dioxide 28 BUN 12 Creatinine 0.65 L Estimated GFR > 60.0 BUN/Creatinine Ratio 18.5 Glucose 131 H Calcium 8.1 L Urine Color Urine Appearance Urine pH Ur Specific [place] Urine Protein Urine Glucose (UA) Urine Ketones Urine Occult Blood Urine Nitrate Urine Bilirubin Urine Urobilinogen Ur Leukocyte Esterase Urine RBC Urine WBC Urine Bacteria Ur Culture Indicated? Vancomycin Peak Vancomycin Trough PFSH Surgical History Status post splenectomy Social History household members: spouse and children Smoking Status: Former smoker alcohol intake: current Assessment & Plan Post-op Postoperative Procedures: Procedures Operation Date: 04/08/21 14:15 Actual Procedure Side Surgeon p exploratory laparotomy, small bowel resection, lysis of adhesions Not Applicable Zach Mitchell MD Operation Date: 04/11/21 12:30 Actual Procedure Side Surgeon p Exploratory Laparotomy GEN Not Applicable Zach Mitchell MD Operation Date: 04/14/21 15:15 Actual Procedure Side Surgeon p abdominal wall closure Not Applicable Zach Mitchell MD Postoperative status narrative: No no patient doing as expected. White blood cell count is mildly elevated but this is not unusual. Postoperative plan narrative: Doing as expected. Remove Sullivan today. Mobilize. Add back Toradol. Try to avoid narcotics for pain. Quality VTE Deep Vein Thrombosis/Pulmonary Embolism Present on Admission: No
--- NOTE | 2021-04-15 11:04 | PC.NURSE ---
Sullivan catheter removed per physician request at 1100. Pt tolerated well. Urinal is at the bedside.
[2021-04-15] MEDS: KETOROLAC 30 MG/ML VIAL IV ×2 (12:16→19:24)
--- NOTE | 2021-04-15 15:49 | CM.DPC ---
DCP Cont: Met with patient and , Hortensia. Patient was sitting up in bed,pleasant. NG tube is still in place. Patient is independent at his baseline, his primary care provider in [place] is Dr. Lema. Patient stated, he is normally health, and they come here to visit every year. [place] was inquiring, is there anything that he will need to do when he goes home?. Let her know that as long as he is mobile, should not need any type of home therapy, but he most likely should stay in the area for surgical follow. up. If there are any incisions that may need to be monitored, will be explained at discharge. P.T. here at the hospital may also be an option before he goes home. P: DCP to continue to follow for any resources needed. Emerald Gastelum RN/Retail Advertising Sales Manager
[2021-04-15] MEDS: BENZOCAINE/MENTHOL 1 LOZ PKT 1 EACH PO (17:08)
[2021-04-15] MEDS: LACTATED RINGERS 1,000 ML 21 ML IV (17:09)
[2021-04-15] MEDS: CALCIUM IV (18:24)
[2021-04-15] MEDS: LYTES IV (18:24)
[2021-04-15] MEDS: [UNRECOGNIZED DRUG - OTHER] IV (18:24)
[2021-04-15] MEDS: DEXT IV (18:24)
[2021-04-15] MEDS: MULTIVITAMIN IV (18:24)
[2021-04-15] MEDS: FAMOTIDINE IV (18:24)
[2021-04-15] MEDS: FAT EMULSIONS 50 GM/250 ML EMULSION IV (19:02)
[2021-04-16] VITALS (14 sets, daily range): BP systolic 109–134; BP diastolic 67–72; PULSE 44–52; RESP 16–18; TEMP 36.2–36.8; O2SAT 93–97
[2021-04-16] MEDS: MEROPENEM 1 GM in SODIUM CHLORIDE 0.9% 100 ML 200 ML IV ×4 (00:26→23:59)
[2021-04-16] MEDS: LORazepam 2 MG/ML INJ 1 MG IV (00:27)
[2021-04-16] MEDS: HYDROMORPHONE 1 MG INJ IV ×5 (00:28→23:59)
[2021-04-16] MEDS: BENZOCAINE/MENTHOL 1 LOZ PKT 1 EACH PO ×4 (00:46→21:36)
[2021-04-16 05:48] LABS: Hematocrit 35.1 % (41-53); Hemoglobin 11.6 g/dL (13.5-17.5); Mean Corpuscular HGB Conc 33.2 % (30-36); Mean Corpuscular Hemoglobin 30.8 PG (26-34); Mean Corpuscular Volume 92.9 fL (80-100); Platelet Count 260 X10^3/uL (150-400); Red Blood Cell Count 3.77 X10^6/uL (4.5-5.9); Red Cell Distribution Width 13.1 % (11.6-14.8); White Blood Cell Count 10.8 X10^3/uL (4.5-11.0)
[2021-04-16] MEDS: VANCOMYCIN 1,250 MG/250 ML PIGGYBACK 250 MG IV ×3 (05:48→21:27)
[2021-04-16 05:49] LABS: Add Manual Diff / Slide Review YES
[2021-04-16] MEDS: KETOROLAC 30 MG/ML VIAL IV ×3 (05:55→18:57)
[2021-04-16 05:58] LABS: Alanine Aminotransferase 73 IU/L (<50); Albumin 2.5 g/dL (3.5-5.0); Albumin Globulin Ratio 0.9 (1.0-2.8); Alkaline Phosphatase 61 U/L (38-126); Aspartate Aminotransferase 83 IU/L (17-59); BUN Creatinine Ratio 23.8 (6-22); Bilirubin Total 0.2 mg/dL (0.2-1.3); Blood Urea Nitrogen 15 mg/dL (9-20); Calcium 7.9 mg/dL (8.4-10.2); Carbon Dioxide 27 mmol/L (22-32); Chloride 107 mmol/L (98-107); Estimated Glomerular Filt Rate > 60.0 mL/min (>60); Globulin 2.7 g/dL (1.7-4.1); Glucose 97 mg/dL (70-100); HEMOLYSIS < 15 (0-50); Sodium 137 mmol/L (137-145); Total Protein 5.2 g/dL (6.3-8.2)
[2021-04-16 06:11] LABS: Procalcitonin 0.49 ng/mL (<0.5)
[2021-04-16 06:22] LABS: Neutrophils Absolute Manual 6264 /uL (3000-5900); RBC Morphology Normal Morphology; Total Cells Counted 100
[2021-04-16] MEDS: ENOXAPARIN 40 MG/0.4 ML SYRINGE SUBCUT (08:30)
[2021-04-16] MEDS: BISACODYL 10 MG SUPP PR (08:30)
--- NOTE | 2021-04-16 11:15 | CM.DPC ---
DCP Cont: Discussed patient during team rounds. Teri, associate director career services, is currently working with patient, he is currently on TPN, until his bowel function returns. He has been ambulating in his room with no difficulties. P: DCP to continue to follow. Plan is home, but will need bowel function return so he can tolerate oral nutrition. Emerald Gastelum RN/Chocolate Coater
--- NOTE | 2021-04-16 16:40 | PC.NURSE ---
Patient is resting comfortable in bed, watching t.v. with at his bedside. His NG tube is patent, on intermittent suction with gastric content present and draining. He reports 2/10 pain at incision site. TPN is currently infusing at 42 mls/hr with Lactated Ringer at 21 mls/hr. He has hypoactive bowel sounds in all 4 quadrants. Clear lung sounds throughout all posterior bilateral trimble. As Nurse Sandra and this student nurse finished our assessment the patient stated needing to have a bowel movement. He was disconnected from suction and currently in bathroom. Reminded to call when finished.
[2021-04-16] MEDS: LACTATED RINGERS 1,000 ML 21 ML IV (17:02)
[2021-04-16] MEDS: METOCLOPRAMIDE 10 MG/2 ML INJ IV ×2 (18:56→23:59)
[2021-04-16] MEDS: DEXT IV (19:09)
[2021-04-16] MEDS: CALCIUM IV (19:09)
[2021-04-16] MEDS: LYTES IV (19:09)
[2021-04-16] MEDS: FAT EMULSIONS 50 GM/250 ML EMULSION IV (19:09)
[2021-04-16] MEDS: FAMOTIDINE IV (19:09)
[2021-04-16] MEDS: MULTIVITAMIN IV (19:09)
[2021-04-16] MEDS: [UNRECOGNIZED DRUG - OTHER] IV (19:09)
--- NOTE | 2021-04-16 23:13 | P.PN_ITS ---
Subjective Subjective Date Patient Seen: 04/16/21 Time Patient Seen: 18:00 Interval history: Patient feels better today. Almost feels good. Had small bowel movement is passed small amount of flatus. Exam Vital Signs (past 8 hours): - 04/16/21 15:15 04/16/21 16:10 04/16/21 16:40 Temperature 98.1 F Pulse Rate 44 L Respiratory Rate 16 Blood Pressure 112/67 Pulse Oximetry 97 97 97 04/16/21 19:23 04/16/21 19:45 04/16/21 21:00 Temperature 98.1 F Pulse Rate 46 L Respiratory Rate 16 Blood Pressure 122/71 Pulse Oximetry 97 97 97 Oxygen Delivery Method Room Air Oxygen Flow Rate 0 Narrative Exam Narrative: Lungs are clear. Heart regular rate and rhythm. Abdomen less distended soft. Dressing is intact. Objective Labs Result Diagrams: 04/16/21 05:35 04/16/21 05:35 Labs: Laboratory Results - last 24 hr 04/16/21 04/16/21 05:35 05:35 WBC 10.8 RBC 3.77 L Hgb 11.6 L Hct 35.1 L MCV 92.9 MCH 30.8 MCHC 33.2 RDW 13.1 Plt Count 260 Neut % (Auto) Not Reportable Lymph % (Auto) Not Reportable [place] % (Auto) Not Reportable Eos % (Auto) Not Reportable Baso % (Auto) Not Reportable Lymph # (Auto) Not Reportable [place] # (Auto) Not Reportable Baso # (Auto) Not Reportable Total Counted 100 Seg Neutrophils % 56.0 Band Neutrophils % 2.0 L Lymphocytes % (Manual) 30.0 Monocytes % (Manual) 8.0 Eosinophils % (Manual) 4.0 Neutrophils # (Manual) 6264 H RBC Morphology Normal morphology Sodium 137 Potassium 4.0 D Chloride 107 Carbon Dioxide 27 BUN 15 Creatinine 0.63 L Estimated GFR > 60.0 BUN/Creatinine Ratio 23.8 H Glucose 97 Calcium 7.9 L Total Bilirubin 0.2 AST 83 H ALT 73 H Alkaline Phosphatase 61 Total Protein 5.2 L Albumin 2.5 L Globulin 2.7 Albumin/Globulin Ratio 0.9 L Procalcitonin 0.49 PFSH Surgical History Status post splenectomy Social History household members: spouse and children Smoking Status: Former smoker alcohol intake: current Assessment & Plan Post-op Postoperative Procedures: Procedures Operation Date: 04/08/21 14:15 Actual Procedure Side Surgeon p exploratory laparotomy, small bowel resection, lysis of adhesions Not Applicable Zach Mitchell MD Operation Date: 04/11/21 12:30 Actual Procedure Side Surgeon p Exploratory Laparotomy GEN Not Applicable Zach Mitchell MD Operation Date: 04/14/21 15:15 Actual Procedure Side Surgeon p abdominal wall closure Not Applicable Zach Mitchell MD Postoperative status narrative: Doing well. Seems to be turning the corner. Mobilizing fluids well. NG output is decreased. Postoperative plan narrative: Continue present management. Increase TPN. X- rays early in the morning. If improvement in clinical status consider DC of NG tube. Quality VTE Deep Vein Thrombosis/Pulmonary Embolism Present on Admission: No
--- NOTE | 2021-04-16 23:30 | PC.NURSE ---
Pt up ad saravanan in room, in chair and out in hallway to ambulate after nursing clamps NG tube. Pt denies nausea with tube clamped and with tube to LIS. 100 cc's green fluid per NG for evening shift total. TPN and lipids infusing to LUE picc line without difficulty. Small stool this shift with active bowel tones auscultated to all abdominal quadrants. Pt admits to passage of flatus. Dr. Mitchell saw pt on evening shift to review plan of care moving forward. Spouse present most of evening shift, attentive, and involved in pt's care. BL calf scd's placed for sleep. Pt attempted to manage pain to abdomen only with toradol but reports pain is not managed well with toradol alone. Administered iv dilaudid with excellent results.
[2021-04-17] VITALS (10 sets, daily range): BP systolic 100–131; BP diastolic 57–79; PULSE 46–49; RESP 16–18; TEMP 36.5–36.7; O2SAT 95–99
[2021-04-17] MEDS: SODIUM CHLORIDE 0.9% 250 ML 21 ML IV (03:22)
[2021-04-17] MEDS: HYDROMORPHONE 1 MG INJ IV ×2 (03:58→06:21)
[2021-04-17] MEDS: KETOROLAC 30 MG/ML VIAL IV ×3 (03:59→20:15)
[2021-04-17] MEDS: VANCOMYCIN 1,250 MG/250 ML PIGGYBACK 250 MG IV ×3 (04:02→20:15)
[2021-04-17] MEDS: BENZOCAINE/MENTHOL 1 LOZ PKT 1 EACH PO ×3 (04:40→22:02)
[2021-04-17] MEDS: METOCLOPRAMIDE 10 MG/2 ML INJ IV ×3 (06:21→18:40)
--- NOTE | 2021-04-17 07:00 | DI.RAD.S_ITS ---
PROCEDURE: XR ACUTE ABDOMEN SERIES INDICATIONS: follow up, determine amount of distention post abdominal wall closure TECHNIQUE: One view chest and two views of the abdomen were acquired. COMPARISON: [facility], CT, CT ABDOMEN PELVIS W CON, 04/11/2021, 9:38. [facility], CR, XR ACUTE ABDOMEN SERIES, 04/14/2021, 6:00. [facility], CR, XR ACUTE ABDOMEN SERIES, 04/10/2021, 13:18. FINDINGS: Surgical changes and devices: Enteric tube with the tip in the gastric fundus. Left-sided PICC with the catheter tip projecting over the cavoatrial junction. Chest: Mild dependent airspace opacity. Small bilateral pleural effusions. Heart size is normal. No pneumoperitoneum. Abdomen: There are prominent loops of small bowel in the left abdomen. Small air-fluid level seen on the upright projection. Overall this appears similar to 04/14/2021. The [place] drains have been removed. Midline ventral abdominal wall staple line. No suspicious calcifications. Bones: No suspicious bony lesions. IMPRESSION: 1. Mildly dilated loops of small bowel and small air-fluid levels. Findings similar to 04/14/2021. This could be due to adynamic ileus or mild small bowel obstruction. 2. Small bilateral pleural effusions. Bibasilar opacity most compatible with atelectasis. A CT abdomen pelvis with IV contrast could be considered for further evaluation. Dictated by: Parag Carrera M.D. on 04/17/2021 at 8:09 Approved by: Parag Carrera M.D. on 04/17/2021 at 8:18
[2021-04-17] MEDS: ENOXAPARIN 40 MG/0.4 ML SYRINGE SUBCUT (08:18)
[2021-04-17] MEDS: MEROPENEM 1 GM in SODIUM CHLORIDE 0.9% 100 ML 200 ML IV ×2 (08:18→15:47)
--- NOTE | 2021-04-17 09:25 | PC.NURSE ---
Addendum entered by Brooke Alvarado R.N. 04/17/21 13:23: Patient ambulating in the halls, reported abd pain 3/10, given IV Toradol. Denies further needs at this time. Original Note: Patient ambulating in halls with at this time. Denies N/V post NG removal. Tolerating activity. BS active x 4, abd soft, non tender, midline dressing intact, shadow drainage noted. Refusing SCD's. Lungs CTA, 98% on RA. Denies needs at this time.
[2021-04-17] MEDS: LACTATED RINGERS 1,000 ML 21 ML IV (10:22)
--- NOTE | 2021-04-17 16:04 | PC.NURSE ---
Addendum entered by Sandra Lawrence R.N. 04/17/21 23:38: Pt showered with assistance of spouse. Per Dr. Mitchell okay to shower and change dressing. Pt returned to bed and abdominal incision inspected. Staple line intact and previous drain sites are healing. Coversite dressings x 2 applied by chief nursing officer, Yair, with this scientific technical writer's oversight. TPN and lipids infusing as ordered to left UE PICC line without difficulty. Pt reports good pain relief with toradol. BL calf scd's for sleep. Sipping trial of clear liquids as provided by Dr. Mitchell. Pt denies nausea. Loose green stool this evening shift. Addendum entered by Sandra Lawrence R.N. 04/17/21 18:57: Dr. Mitchell has seen patient this evening shift. Okayed pt may have a few sips of water and two containers of juice which are currently in pt's possession. Pharmacy was notified @ 1800 looking for tpn. 1900 still awaiting tpn. Pt's blood sugar checked and as recorded. Original Note: Pt awake, alert, resting quietly in bed. NG has been removed per dayshift report. Pt denies nausea and admits to feelings of hunger. Remains NPO and pt was informed pending further orders by surgeon. SCD's BL replaced while pt in bed. Able to use I.S. to 4000. Lungs are clear to auscultation slightly diminished in bases BL. HR bradycardic and pt reports this is baseline. Moves self in and out of bed independently without difficulty. Pt describes slight sacral edema and edema to right hip. Minimal edema noted. Faint rash to back and pt's spouse reports this has improved. Hospital issued no rinse wash provided to pt's spouse to cleanse pt's back. Encouraged to call for needs. Pt rates pain as minimal and states no need for further anaglesia as received toradol this afternoon.
--- NOTE | 2021-04-17 16:16 | PC.NURSE ---
Addendum entered by Yair Painter 04/17/21 17:14: Patient is up and ambulating the halls with at side. Appropriate footwear is on. Original Note: Patient is resting comfortably in bed with at bedside. He is alert and oriented to person, place, situation and date of . NG tube was removed this morning. He reports no nausea or vomiting and minimal abdominal pain. He reports passing gas. Last bowel movement was 8/5. Active bowel sounds in all 4 quadrants. He is normally sinus bradycardia r/t to his fitness level. PICC line in upper left arm, with TPN running in at 63 mls/hr and meropenem at 200 mls/hr. He was reminded by this student nurse to call for any needs.
--- NOTE | 2021-04-17 17:32 | DIET.PN ---
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 Not yet to goal for TPN. Current rate per notes is 63 mL/h. Per RD assessment nutrition rx: 83 m/L. Plan to start clears likely tonight per provider. Last weight taken on 04/14. HT: 185.4cm WT: 70.3kg (04/14) BMI: 20.4 Labs: refeeding labs reviewed. WNL. Nutrition Diagnosis: inadequate protein energy intake r/t NPO status and not to TPN goal Interventions: 1. Once on clear diet, appropriate for Ensure clear TID 2. Daily weight please Diet Order: NPO c TPN EER: 91 g PRO (1.3g/kg per postsurgical), 2100 kcals (30kcal/kg per post surgical) Monitoring/Evaluations: NPO status, weights, labs, follow-up by Tuesday
--- NOTE | 2021-04-17 17:42 | P.PN_ITS ---
Subjective Subjective Interval history: patient feels better to day. Passing flatus. No BM. Ambulating in the young. No nausea. No narcotics for pain Exam Vital Signs (past 8 hours): - 04/17/21 10:04 04/17/21 10:11 04/17/21 15:39 Temperature 97.8 F 97.8 F Pulse Rate 48 L 46 L Respiratory Rate 18 16 Blood Pressure 105/66 100/57 L Pulse Oximetry 95 97 Oxygen Delivery Method Room Air Oxygen Flow Rate 0 Narrative Exam Narrative: lungs clear. heart rrr. Abdomen: wound healthy . No cellulitis. Drain sites closed. Abdomen a little distended but much improved. No obvious tenderness with vigorous shaking. Objective Labs Result Diagrams: 04/16/21 05:35 04/16/21 05:35 [facility] Surgical History Status post splenectomy Social History household members: spouse and children Smoking Status: Former smoker alcohol intake: current Assessment & Plan Post-op Postoperative Procedures: Procedures Operation Date: 04/08/21 14:15 Actual Procedure Side Surgeon p exploratory laparotomy, small bowel resection, lysis of adhesions Not Ap plicable Zach Mitchell MD Operation Date: 04/11/21 12:30 Actual Procedure Side Surgeon p Exploratory Laparotomy GEN Not Applicable Zach Mitchell MD Operation Date: 04/14/21 15:15 Actual Procedure Side Surgeon p abdominal wall closure Not Applicable Zach Mitchell MD Postoperative status narrative: doing well. xrays slowly improving as is his clinical state. Postoperative plan narrative: NG removed. Start cautious clear liquids. may shower. Probably stop IV antibiotics tomorrow. Quality VTE Deep Vein Thrombosis/Pulmonary Embolism Present on Admission: No
[2021-04-17] MEDS: CALCIUM IV (19:27)
[2021-04-17] MEDS: INSULIN REGULAR IV (19:27)
[2021-04-17] MEDS: DEXT IV (19:27)
[2021-04-17] MEDS: [UNRECOGNIZED DRUG - OTHER] IV (19:27)
[2021-04-17] MEDS: LYTES IV (19:27)
[2021-04-17] MEDS: MULTIVITAMIN IV (19:27)
[2021-04-17] MEDS: FAT EMULSIONS 50 GM/250 ML EMULSION IV (19:29)
[2021-04-17] MEDS: SODIUM CHLORIDE 0.9% 500 ML 21 ML IV (19:29)
[2021-04-18] VITALS (12 sets, daily range): BP systolic 110–122; BP diastolic 63–69; PULSE 44–48; RESP 14–16; TEMP 35.9–36.6; O2SAT 96–99
[2021-04-18] MEDS: MEROPENEM 1 GM in SODIUM CHLORIDE 0.9% 100 ML 200 ML IV ×3 (00:32→15:54)
[2021-04-18] MEDS: METOCLOPRAMIDE 10 MG/2 ML INJ IV ×5 (00:33→23:06)
[2021-04-18] MEDS: VANCOMYCIN 1,250 MG/250 ML PIGGYBACK 250 MG IV (05:38)
[2021-04-18] MEDS: KETOROLAC 30 MG/ML VIAL IV ×2 (05:39→15:54)
[2021-04-18 05:49] LABS: Hematocrit 33.8 % (41-53); Hemoglobin 11.9 g/dL (13.5-17.5); Mean Corpuscular HGB Conc 35.2 % (30-36); Mean Corpuscular Hemoglobin 32.5 PG (26-34); Mean Corpuscular Volume 92.2 fL (80-100); Platelet Count 366 X10^3/uL (150-400); Red Blood Cell Count 3.67 X10^6/uL (4.5-5.9); Red Cell Distribution Width 13.2 % (11.6-14.8); White Blood Cell Count 8.7 X10^3/uL (4.5-11.0)
[2021-04-18 05:55] LABS: Alanine Aminotransferase 91 IU/L (<50); Albumin 2.7 g/dL (3.5-5.0); Alkaline Phosphatase 64 U/L (38-126); Aspartate Aminotransferase 78 IU/L (17-59); Bilirubin Total 0.2 mg/dL (0.2-1.3); Blood Urea Nitrogen 14 mg/dL (9-20); Calcium 8.2 mg/dL (8.4-10.2); Carbon Dioxide 24 mmol/L (22-32); Chloride 109 mmol/L (98-107); Estimated Glomerular Filt Rate > 60.0 mL/min (>60); Globulin 2.8 g/dL (1.7-4.1); Glucose 110 mg/dL (70-100); HEMOLYSIS < 15 (0-50); Magnesium 2.2 mg/dL (1.6-2.3); Phosphorous 3.6 mg/dL (2.5-4.5); Potassium 4.2 mmol/L (3.4-5.1); Sodium 138 mmol/L (137-145); Total Protein 5.5 g/dL (6.3-8.2)
[2021-04-18 05:57] LABS: Add Manual Diff / Slide Review YES
[2021-04-18 06:09] LABS: Neutrophils Absolute Manual 5655 /uL (3000-5900); Total Cells Counted 100
[2021-04-18 06:11] LABS: RBC Morphology Normal Morphology
[2021-04-18] MEDS: ENOXAPARIN 40 MG/0.4 ML SYRINGE SUBCUT (08:34)
--- NOTE | 2021-04-18 11:16 | PM.PN.1 ---
Subjective Subjective Date Patient Seen: 04/18/21 Time Patient Seen: 11:16 Exam Vital Signs (past 8 hours): - 04/18/21 04:00 04/18/21 07:30 04/18/21 08:42 Temperature 97.2 F L Pulse Rate 48 L Respiratory Rate 16 Blood Pressure 113/69 Pulse Oximetry 96 96 96 Oxygen Delivery Method Room Air Oxygen Flow Rate 0 Narrative Exam Narrative: abdomen is soft, dressing is dry. He otherwise looks remarkably good. + BM some loose Objective Labs Result Diagrams: 04/18/21 05:36 04/18/21 05:36 Labs: Laboratory Results - last 24 hr 04/18/21 04/18/21 05:36 05:36 WBC 8.7 RBC 3.67 L Hgb 11.9 L Hct 33.8 L MCV 92.2 MCH 32.5 MCHC 35.2 RDW 13.2 Plt Count 366 Neut % (Auto) Not Reportable Lymph % (Auto) Not Reportable [place] % (Auto) Not Reportable Eos % (Auto) Not Reportable Baso % (Auto) Not Reportable Lymph # (Auto) Not Reportable [place] # (Auto) Not Reportable Baso # (Auto) Not Reportable Total Counted 100 Seg Neutrophils % 58.0 Band Neutrophils % 7.0 Lymphocytes % (Manual) 20.0 L Atypical Lymphs % 1.0 H Monocytes % (Manual) 7.0 Eosinophils % (Manual) 4.0 Metamyelocytes % 3.0 H Neutrophils # (Manual) 5655 RBC Morphology Normal morphology Sodium 138 Potassium 4.2 Chloride 109 H Carbon Dioxide 24 BUN 14 Creatinine 0.50 L Estimated GFR > 60.0 BUN/Creatinine Ratio 28.0 H Glucose 110 H Calcium 8.2 L Phosphorus 3.6 Magnesium 2.2 Total Bilirubin 0.2 AST 78 H ALT 91 H Alkaline Phosphatase 64 Total Protein 5.5 L Albumin 2.7 L Globulin 2.8 Albumin/Globulin Ratio 1.0 PFSH Surgical History Status post splenectomy Social History household members: spouse and children Smoking Status: Former smoker alcohol intake: current Assessment & Plan Assessment & Plan narrative: s/p Small bowel resection w/o complication. pathology is pending. Return of bowel function. On TPN Plan: stop antibiotics, clear liquid diet. May wean off TPN tomorrow. Anticipate another 2 days no Hospital. COVID-19 COVID-19 status: Negative Quality VTE Deep Vein Thrombosis/Pulmonary Embolism Present on Admission: No
--- NOTE | 2021-04-18 14:24 | CM.DPC ---
Addendum entered by Maria Elena Alcocer LPN 04/18/21 14:35: Met now with pt and his Hortensia. Pt confirms they are staying with his parents who live in [place] and expect to be here at least until the first followup visit with [facility]. He said Dr. Mitchell told him this would likely be in a week after d/c. Hortensia notes that they and the parents are eager to know how to prepare for him as he d/c's to this home setting. See that wood window and door craftsman team is seeing pt and expect they will likely have some dietary advice but let them know that the surgeon team would be the ones who would be discussing specifics of his followup needs. Discussed getting the medical records for pt when he does d/c home. Recommended his call the Medical Records dept on Tuesday to discuss specifics of same. Original Note: DCP: continued: case received and discussed in Team Rounds. Pt continues to improve per Dr. Real's report for today. TPN will be weaned as oral diet progressed. Await return of bowel function. Pt is up ambulating independently in halls with his . P: Home when stable for same: will check to see the specifics of this.
[2021-04-18] MEDS: [UNRECOGNIZED DRUG - OTHER] IV (18:10)
[2021-04-18] MEDS: LYTES IV (18:10)
[2021-04-18] MEDS: DEXT IV (18:10)
[2021-04-18] MEDS: MULTIVITAMIN IV (18:10)
[2021-04-18] MEDS: CALCIUM IV (18:10)
[2021-04-18] MEDS: GABAPENTIN 600 MG TABLET PO (20:50)
[2021-04-18] MEDS: CELECOXIB 100 MG CAPSULE 200 MG PO (20:50)
[2021-04-18] MEDS: SODIUM CHLORIDE 0.9% 500 ML 21 ML IV (22:31)
[2021-04-19] VITALS: O2SAT 96
[2021-04-19 04:00] VITALS: O2SAT 96
[2021-04-19] MEDS: METOCLOPRAMIDE 10 MG/2 ML INJ IV (05:44)
[2021-04-19 05:53] VITALS: BP 124/60; PULSE 49; RESP 16; TEMP 36.5; O2SAT 98
[2021-04-19] MEDS: ACETAMINOPHEN 325 MG TABLET 650 MG PO (06:09)
--- NOTE | 2021-04-19 06:11 | PC.NURSE ---
Patient called after waking up and noticing that the PICC dressing pulling up at the corners. A dressing change was done at 0545. Patient was also complaining of a mild headache and only a rectal Tylenol was ordered. Dr. Real was called at 0550 and verbal orders were given for oral Tylenol 650 mg PO q6 PRN were given. No other orders received at this time.
[2021-04-19 07:28] VITALS: BP 106/62; PULSE 47; RESP 12; TEMP 36.4; O2SAT 96
[2021-04-19 08:35] VITALS: O2SAT 96
[2021-04-19] MEDS: ENOXAPARIN 40 MG/0.4 ML SYRINGE SUBCUT (09:27)
[2021-04-19] MEDS: CELECOXIB 100 MG CAPSULE 200 MG PO (09:27)
--- NOTE | 2021-04-19 11:51 | CM.DPC ---
DCP: continued: Dr. Real is here now and in process of discharging pt to the home (his parents) setting. He will see Dr. Mitchell for followup visit in a week before he and his decide whant to return to their home in [place].
--- NOTE | 2021-04-19 12:49 | PC.NURSE ---
Pt is dressed and ready for discharge home with Spouse. PICC line was removed. Pt dressing to abdomen is cdi and Pt has a spare dsg if his current dressing needs to be changed. Went over d/c instructions with Pt and Spouse-discussed d/c meds, time of last dose, reviewed stroke education, s/s of infection, showering, drinking plenty of fluids to prevent constipation or dehydration, no driving if taking narcotics, avoiding kale and other coarse foods that are notorious for causing bowel obstructions, and follow up in 1 week. Pt will call to make his appointment tomorrow. Pt and Spouse denied further questions and were taken out via w/c by [facility] to POV with Spouse and all belongings.
--- NOTE | 2021-04-22 09:25 | PM.DS.1 ---
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 S/p Exploratory laparotomy with FABBY and SB resection. Post op complicated by abdominal compartment syndrome presenting as high fever. Had take back for re exploratory with abdomen left open. Delayed fascial closure. 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 Abdominal compartment syndrome requiring second surgery where abdomen was left open. Delayed fascial closure w/o complication. Status at Discharge Cognitive/behavioral status at discharge: at baseline, oriented Functional status at discharge: independent ambulation Overall status at discharge: patient is progressing back to baseline Time Spent with Patient Time spent: Less than 30 minutes Exam Vital Signs (past 8 hours): Oxygen Delivery Method Room Air Oxygen Flow Rate 0 Const General: cooperative and comfortable Nutritional Appearance: average body habitus HENMT Head: normal to inspection, normocephalic and atraumatic Ears: hearing grossly normal bilaterally Nose: external nose normal Face and sinus: normal facial exam Eyes Sclera: sclerae normal Neck Neck: trachea midline Chest Chest: normal inspection of the chest Resp Effort & Inspection: normal respiratory effort and able to speak in complete sentences GI Other: abdomen is soft, incision tenderness, wound dry and intact. sharad in place Neuro General: patient alert and patient oriented x3 Cognition: normal cognition Objective Labs Result Diagrams: 04/18/21 05:36 04/18/21 05:36 [facility] Surgical History Status post splenectomy Social History household members: spouse and children Smoking Status: Former smoker alcohol intake: current Discharge Assessment & Plan Assessment and Plan Assessment: return of GI function. No further postoperative complications. antibiotics stopped. Plan of Treatment: Discharge home, follow up next week for staple removal. no heavy lifting >15 lbs for 4 weeks. Discharge Plan Discharge Plan Patient Disposition: Home Provider Discharge Comment: When you are discharged just try to take it easy but I do you want to walking. You may find the food does not taste normal. That is not unusual an sometimes takes 4-6 weeks to come back normal. He may have some hardness around his incision. This will soften up at time that it may take months to do so. Avoid large amounts of any given vegetable and try to avoid vegetables that are notorious for being poorly digested like Kale. Discharge orders & Medications Prescriptions: New acetaminophen 325 mg Tablet 650 mg PO Q6HR PRN (Reason: Fever/Mild Pain (1-3)) Qty: 60 RF: 0 gabapentin [Neurontin] 600 mg Tablet 600 mg PO BEDTIME Qty: 30 RF: 0 celecoxib [Celebrex] 100 mg Capsule 200 mg PO BID Qty: 30 RF: 1 hydrocodone-acetaminophen [Vicodin HP] 10-300 mg tablet 1 tab PO Q8H PRN (Reason: pain) Qty: 10 RF: 0 Follow up/Referrals: Doctor Farias MD [Primary Care Provider] - Zach Mitchell MD [Physician] - 1 Week (please call and make an appointment to see me sometime around April 24. If you need to reach a doctor , call our office. If it is after hours listen to the message and you will be told how to page the doctor precision agriculture specialist for our practice. Have a pen and paper ready to write the 800 number down.) Diet/Activity/Treatments Diet: Diet as Tolerated Activity: Do not lift over 10 lb or strain for the next 5 weeks. You may walk. No cycling. No pool or tub for at least 2 weeks. Skin/Wound/Dressing Care Report to your healthcare provider any signs of infection, such as:: chills, fever, night sweats, increased pain, unusual drainage and unusual redness Visit Report/Discharge Packet Instructions: Small Bowel Resection, DI for Small Bowel Obstruction, DI for Prescription Opioid Use, Hydrocodone/Acetaminophen (By mouth) Discharge Data Primary Care Provider: Doctor Jarrett Quality VTE Deep Vein Thrombosis/Pulmonary Embolism Present on Admission: No
== END 2021-04-19 12:52 | disposition home or self-care (01) | DRG 330 ==
LOC: ED 13:13 → AC 19:10
PROVIDERS: Surgery; Admitting Provider Specialist; Emergency Provider Emergency Medicine; Referring Provider Emergency Medicine; Visit Provider Specialist
PROC: 0DN80ZZ Release Small Intestine, Open Approach (ICD-10-PCS; CPT 44140; principal; 2021-04-08 11:15)
PROC: 0WJG0ZZ Inspection of Peritoneal Cavity, Open Approach (ICD-10-PCS; CPT 49000; principal; 2021-04-11 12:30)
PROC: 0JQ80ZZ Repair Abdomen Subcutaneous Tissue and Fascia, Open Approach (ICD-10-PCS; principal; 2021-04-14 15:15)
DX: K56.52 Intestinal adhesions [bands] with complete obstruction (principal); T79.A3XA Traumatic compartment syndrome of abdomen, initial encounter; Z20.822 Contact with and (suspected) exposure to COVID-19; R50.82 Postprocedural fever; K63.89 Other specified diseases of intestine
CPT/HCPCS: 36415; 36569; 36592; 74018; 74022; 74177; 74250; 80048; 80053; 80202; 81001; 82962; 83605; 83690; 83735; 84100; 84145; 85007; 85025; 85610; 85730; 87040; 87070; 87075; 87086; 87205; 87635; 93005; 94760; 96361; 96374; 96376; 99284; C9803; B4185; B4189; J0330; J0696; J1100; J1170; J1642; J1650; J1815; J1885; J1940; J2060; J2175; J2185; J2405; J2704; J2765; J3010; J7121; Q9967

== ENCOUNTER → 2021-04-23 11:43 | Outpatient (CLI) | payer BC, SELFPAY ==
[2021-04-07 19:06] VITALS: BMI 20.4
[2021-04-23 12:50] LABS: Add Manual Diff / Slide Review NO; Basophils Absolute Auto 0 /uL (0-100); Basophils Percent Auto 0.6 % (0-2); Eosinophils Absolute Auto 200 /uL (0-450); Eosinophils Percent Auto 2.1 % (2-4); Hematocrit 37.4 % (41-53); Hemoglobin 12.8 g/dL (13.5-17.5); Lymphocytes Absolute Auto 2500 /uL (1100-4500); Lymphocytes Percent Auto 33.4 % (25-40); Mean Corpuscular HGB Conc 34.2 % (30-36); Mean Corpuscular Hemoglobin 31.7 PG (26-34); Mean Corpuscular Volume 92.7 fL (80-100); Monocytes Absolute Auto 800 /uL (0-900); Monocytes Percent Auto 10.6 % (3-14); Neutrophils Absolute Auto 4000 /uL (1500-7000); Neutrophils Percent Auto 53.3 % (50-75); Platelet Count 557 X10^3/uL (150-400); Red Blood Cell Count 4.04 X10^6/uL (4.5-5.9); Red Cell Distribution Width 13.5 % (11.6-14.8); White Blood Cell Count 7.5 X10^3/uL (4.5-11.0)
== END ==
PROVIDERS: Referring Provider Specialist; Visit Provider Specialist
DX: K56.609 Unspecified intestinal obstruction, unspecified as to partial versus complete obstruction (principal)
CPT/HCPCS: 36415; 85025